=== PATIENT | female | born 1960 | race Caucasian/White ===

== ENCOUNTER 2020-09-06 06:29 | Outpatient (REF) | payer OTHER, SELFPAY ==
[2020-09-06 07:52] LABS: Cholesterol 258 mg/dL; HDL Cholesterol 67 mg/dL; LDL Cholesterol Calculated 176 mg/dl; Triglycerides 75 mg/dL
== END 2020-09-06 06:30 | disposition home or self-care (01) ==
LOC: HO.LAB 06:29
PROVIDERS: PCP Family Medicine; Visit Provider Family Medicine
DX: Z00.00 Encounter for general adult medical examination without abnormal findings (principal)
CPT/HCPCS: 80061

== ENCOUNTER 2023-01-12 07:21 | Outpatient (REF) | payer OTHER, SELFPAY ==
[2023-01-12 08:46] LABS: Appearance Urine Clear; Color Urine Yellow; Glucose Urine UA Negative (Negative); Leukocyte Esterase Urine Trace (Negative); Nitrite Urine Negative (Negative); PH 7.5 (5.0-9.0); UMIC TRIGGER UA YES; Urine Blood Negative (Negative); Urine Ketones Negative (Negative); Urine Protein Negative (Neg-Trace)
[2023-01-12 08:50] LABS: Bacteria Urine None Seen (None Seen); Hyaline Casts Urine 0-2 /LPF (0-2); RBC Urine 0-2 /HPF (0-2); Squamous Epithelial Cell Urine 0-2 /HPF (0-2); WBC Urine 0-5 /HPF (0-5)
[2023-01-12 08:52] LABS: Alanine Aminotransferase 15 U/L (0-31); Albumin Level 4.5 g/dL (3.5-5.0); Alkaline Phosphatase 55 U/L (39-117); Anion Gap 13 (12-20); Aspartate Amino Transferase 19 U/L (5-31); Bilirubin Total 0.7 mg/dL (0.0-1.0); Blood Urea Nitrogen 16 mg/dL (9-16); Calcium 10.4 mg/dL (8.4-10.2); Carbon Dioxide 27 mmol/L (22-29); Chloride 105 mmol/L (96-108); Cholesterol 231 mg/dL; Estimated Glomerular Filt Rate > 60; Glucose Fasting 94 mg/dL (60-99); HDL Cholesterol 62 mg/dL; LDL Cholesterol Calculated 158 mg/dl; Potassium 4.7 mmol/L (3.3-5.1); Sodium 140 mmol/L (135-145); Triglycerides 55 mg/dL
[2023-01-12 09:07] LABS: TSH reflex Free T4 0.04 uIU/mL (0.32-4.0)
[2023-01-12 09:18] LABS: Creatinine Urine 48.24 mg/dL; Microalbumin Urine < 5.0 mg/L
[2023-01-12 09:43] LABS: Free T4 (Free Thyroxine) 1.19 ng/dL (0.71-1.85)
== END 2023-01-12 07:22 | disposition home or self-care (01) ==
LOC: HO.LAB 07:21
PROVIDERS: PCP Family Medicine; Visit Provider Family Medicine
DX: Z00.00 Encounter for general adult medical examination without abnormal findings (principal); I10 Essential (primary) hypertension
CPT/HCPCS: 36415; 80053; 80061; 81001; 82043; 84439; 84443

== ENCOUNTER 2023-04-08 06:38 | Day surgery (SDC) | payer OTHER, SELFPAY ==
--- NOTE | 2023-04-05 12:02 | HO.ANESPROP2 ---
Documented by User: Laney Bautista NP 04/05/23 12:03 HPI - Anesthesia Eval Consult details Narrative: 63yo F for Colonoscopy PMFSH Active Problems Active Problems: All Active Problems (Updated 01/08/23 @ 09:13 by Antonio Mathews) Anxiety with depression (Acute) Hypothyroidism (Acute) Hyperlipidemia (Acute) Past Medical History Medical History (Updated 04/05/23 @ 12:03 by Laney Bautista NP) Anxiety with depression Bronchitis Hyperlipidemia Hypothyroidism Ulcerative colitis Family History Family History (Updated 01/08/23 @ 08:46 by Ruby Garcia CMA) Mother Diabetes Surgical History Surgical History (Updated 04/05/23 @ 12:03 by Laney Bautista NP) H/O partial thyroidectomy Social History Social History Housing: House Alcohol intake: former Patient Tobacco Use Status: Former Tobacco user e-Cigarette/Vaping Use: Never Used Are you DNR?: No Advance Directives: No Advance Directives Information Provided: Yes service: No Current occupational status: employed 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 no abdominal pain , no nausea PMFSH Past Medical History Medical History (Updated 04/05/23 @ 12:03 by Laney Bautista NP) Anxiety with depression Bronchitis Hyperlipidemia Hypothyroidism Ulcerative colitis Functional capacity: independent ambulation Family History Family History (Updated 01/08/23 @ 08:46 by Ruby Garcia CMA) Mother Diabetes Family history of problems with anesthesia: No Surgical History Surgical History (Updated 04/05/23 @ 12:03 by Laney Bautista NP) H/O partial thyroidectomy History of Problems with Anesthesia: No Social History Social History Housing: House Alcohol intake: former Patient Tobacco Use Status: Former Tobacco user e-Cigarette/Vaping Use: Never Used Are you DNR?: No Advance Directives: No Advance Directives Information Provided: Yes service: No Current occupational status: employed 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 Allergies Allergy/AdvReac Type Severity Reaction Status Date / Time Penicillins [PENICILLINS] Allergy Unknown RASH Verified 01/08/23 08:43 Exam Airway Mallampati Class: III Loose/Missing/Broken Teeth: Yes Assessment and Plan Final Anesthetic Review Family History of Problems with Anesthesia: No History of Problems with Anesthesia: No Documented by User: Prudence Jacobs MD 04/08/23 07:59 PMFSH Past Medical History Medical History (Updated 04/05/23 @ 12:03 by Laney Bautista NP) Anxiety with depression Bronchitis Hyperlipidemia Hypothyroidism Ulcerative colitis Family History Family History (Updated 01/08/23 @ 08:46 by Ruby Garcia CMA) Mother Diabetes Surgical History Surgical History (Updated 04/05/23 @ 12:03 by Laney Bautista NP) H/O partial thyroidectomy Social History Social History Housing: House Alcohol intake: former Patient Tobacco Use Status: Former Tobacco user e-Cigarette/Vaping Use: Never Used Are you DNR?: No Advance Directives: No Advance Directives Information Provided: Yes service: No Current occupational status: employed 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
[2023-04-08 06:55] VITALS: BP 154/79; PULSE 72; RESP 20; TEMP 36.6; O2SAT 97; BMI 31.6
[2023-04-08 08:35] VITALS: BP 120/54; PULSE 66; RESP 16; TEMP 36.1; O2SAT 97
--- NOTE | 2023-04-08 08:35 | P.BOP_ITS ---
Brief Operative Note Date of Service: 04/08/23 Pre-op diagnosis: Ulcerative colitis, Screening Post-op diagnosis: other (Same, Diverticulosis) Procedure: Colonoscopy to the cecum and TI with biopsies Surgeon: Manuel Solis Anesthesia: MAC Was an Industrial Commercial Groundskeeper used for this Procedure?: No Estimated blood loss (mL): 5.0 Pathology: other (A. Ascending colon B. Transverse colon C. Descending colon D. Sigmoid colon E. Rectum) Condition: stable Disposition: PACU
[2023-04-08 08:50] VITALS: BP 119/48; PULSE 66; RESP 16; TEMP 37.1; O2SAT 98
--- NOTE | 2023-04-08 09:07 | OP_ITS ---
DATE OF SERVICE: 04/08/2023 SURGEON: Manuel Solis MD INDICATIONS: The patient presents for evaluation of long-standing history of ulcerative colitis and colorectal cancer screening. Full consent obtained from her for this, including risks of bleeding and perforation. PREOPERATIVE DIAGNOSIS: POSTOPERATIVE DIAGNOSIS: PROCEDURE PERFORMED: Colonoscopy to cecum and terminal ileum with biopsies. ESTIMATED BLOOD LOSS: COMPLICATIONS: ANESTHESIA: Monitored anesthesia care. ASSISTANTS: SPECIMENS: PREOP DIAGNOSES: Ulcerative colitis and colorectal cancer screening. POSTOP DIAGNOSES: Ulcerative colitis and colorectal cancer screening, rule out dysplasia, mild sigmoid diverticulosis, internal hemorrhoids. DESCRIPTION OF PROCEDURE: The patient was placed in the left lateral decubitus position. The digital rectal exam revealed no abnormality. There was no perianal disease. The Olympus video pediatric colonoscope was entered into the rectum and advanced easily to the cecum. Once in the cecum, I did identify normal-appearing cecal pouch with appendiceal orifice and a normal-appearing ileocecal valve. The terminal ileum was cannulated and appeared normal. The scope was withdrawn back in the colon. The entire cecum and ileocecal valve appeared normal. The scope was slowly withdrawn assessing all mucosal surfaces carefully. Preparation was excellent. I did not visualize any sign of polyps, colitis, nor angiodysplasia. Random biopsies were obtained in the ascending colon, transverse colon, descending colon, sigmoid colon and rectum. In the rectum, scope was retroflexed visualizing internal hemorrhoids, but no other pathology. The rectal mucosa appeared normal. The scope was straightened and withdrawn from the patient. She tolerated the procedure well and was returned to the recovery area in stable condition. IMPRESSION: 1. History of ulcerative colitis, rule out dysplasia. 2. Mild sigmoid diverticulosis. 3. Internal hemorrhoids. PLAN: The results of the biopsies will be checked. Assuming there is no dysplasia, I would recommend a repeat colonoscopy in 3 years given the longevity of her underlying colitis and the fact that it had been a pancolitis in the past. She is currently not using any medication for the colitis and things have been stable. As such, she will see me in the interim on a p.r.n. basis. She was advised not to use any aspirin and NSAIDs for at least 1 week, but to try to avoid those long-term as well. MD MARY Mao/TEODORA / [phone]
== END 2023-04-08 09:20 | disposition home or self-care (01) ==
PROVIDERS: PCP Family Medicine; Visit Provider Internal Medicine
PROC: 0DJD8ZZ Inspection of Lower Intestinal Tract, Via Natural or Artificial Opening Endoscopic (ICD-10-PCS; CPT 45378; principal; 2023-04-08 07:30)
DX: Z12.11 Encounter for screening for malignant neoplasm of colon (principal); K57.30 Diverticulosis of large intestine without perforation or abscess without bleeding; K64.8 Other hemorrhoids; K51.00 Ulcerative (chronic) pancolitis without complications; E03.9 Hypothyroidism, unspecified; E78.5 Hyperlipidemia, unspecified; Z87.891 Personal history of nicotine dependence; Z79.899 Other long term (current) drug therapy
CPT/HCPCS: 45380; 88305

== ENCOUNTER 2023-04-11 13:25 | Outpatient (AMB) | payer OTHER, SELFPAY ==
[2023-04-11 13:32] VITALS: BP 128/74; PULSE 68; O2SAT 98; BMI 30.8
--- NOTE | 2023-04-11 13:32 | MHC.PC.OV ---
Vital Signs 04/11/23 13:32 Height 5 ft 1 in Weight 163 lb BMI 30.8 BP 128/74 Blood Pressure Location Lt brachial Position Sitting Pulse 68 Pulse Source Pulse Oximeter Pulse Oximetry (%) 98 Oxygen Delivery Method Room Air Intake Visit Reasons: f/u HLD Intake Note: Patient is here to follow up on her cholesterol. Allergies Penicillins [PENICILLINS] Allergy (Unknown, Verified 04/11/23 13:35) RASH Tobacco use date assessed: 04/11/23 Dental Screening Did you have a dental visit in the last 12 months?: Yes Did you have a dental problem in the last 6 months where you did not have access to dental care?: No Was dental information given to patient?: No HPI f/u HLD HPI Details 63 y/o female presents to f/u HLD. Pt had been unwilling to use a statin medication. Also following up on anxiety/depression. She is on escitalopram. She reports she feels like she is steady on escitalopram. Lipid panel drawn 01/12/23. Triglycerides 55. TC 231. LDL 158. HDL 62. TSH low at 0.04. She is on levothyroxine 125 mcg daily. Pt notes she has not been watching her diet much. 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[employer] Cognitive needs: No Hearing needs: No Vision needs: No Review of Systems Const Denies chills, Denies fatigue, Denies fever(s), Denies headache(s) and Denies weakness ENT Denies dizziness and Denies headache(s) Card Denies chest pain, Denies lightheadedness, Denies dyspnea and Denies other (Palpitations) Resp Denies cough, Denies dyspnea, Denies wheezing and Denies other ( shortness of breath) Musc Denies numbness and Denies tingling Neuro Denies dizziness, Denies headache(s), Denies numbness, Denies tingling, Denies paresthesias and Denies weakness Psych Denies anxiety and Denies depression Endo Denies fatigue Aller/Immun Denies wheezing Physical exam (Primary Care) Vital Signs: Last Vital Signs Pulse 68 04/11/23 13:32 BP 128/74 04/11/23 13:32 Pulse Ox 98 04/11/23 13:32 Oxygen Delivery Method Room Air 04/11/23 13:32 BMI result Body Mass Index 30.8 Tobacco/Smoking Status: Tobacco use Status Tobacco use date assessed 04/11/23 04/11/23 13:40 Patient Tobacco Use Status Former Tobacco user 04/11/23 13:34 e-Cigarette/Vaping Use Never Used 04/11/23 13:34 Const General: no acute distress and well developed Nutritional Appearance: well nourished Orientation/consciousness: patient oriented x3 HENMT Head: Yes normocephalic and Yes atraumatic Eyes General: appearance normal, both eyes and all related structures Pupils: Equal, round and reactive pupils present EOM: EOMs intact bilaterally Resp Effort & Inspection: normal respiratory effort Auscultation: clear to auscultation bilaterally Cardio Rate: regular rate Rhythm: regular rhythm Heart sounds: S1 normal heart sound present, S2 normal heart sound present, no gallops, no murmurs and no rubs Neuro General: patient oriented x3 and gait normal Cranial nerves: Yes Equal, round and reactive pupils present Psych Affect: normal affect Assessment and Plan Assessment & Plan (1) Hyperlipidemia: Code(s): E78.5 - Hyperlipidemia, unspecified Plan: Lipids are improving and HDL is good Encouraged a continued effort at a diet lower in saturated fats and cholesterol, exercise and weight loss She declines statins but has a friend/neighbor who is using red yeast rice so she is looking into that (2) Hypothyroidism: Code(s): E03.9 - Hypothyroidism, unspecified Plan: TSH was suppressed at her last check She sees Dr. Stephens in, endocrinology and she can discuss this with him (3) Anxiety with depression: Code(s): F41.8 - Other specified anxiety disorders Plan: Stable on escitalopram 20 mg daily Continue current regimen Orders: Orders Comprehensive [place]. Panel Fast Today Z00.00 - Encounter for general adult medical examination without abnormal findings Lipid Panel Today Z00.00 - Encounter for general adult medical examination without abnormal findings TSH reflex Free T4 Today Z00.00 - Encounter for general adult medical examination without abnormal findings Microalbumin, Random (w Creat) Today I10 - Essential (primary) hypertension Complete Blood Count Auto Diff Today Z00.00 - Encounter for general adult medical examination without abnormal findings UA and rflx microscopic Today Z00.00 - Encounter for general adult medical examination without abnormal findings Medications: Changed From escitalopram oxalate 20 mg PO DAILY 30 caps 3RF To escitalopram oxalate 20 mg PO DAILY 90 days 90 caps 3RF Coding Level of Care Code Est Pt Level 3 (63193) Diagnoses Hyperlipidemia E78.5 Hypothyroidism E03.9 Anxiety with depression F41.8
== END 2023-04-11 14:17 | disposition home or self-care (01) ==
PROVIDERS: PCP Family Medicine; Visit Provider Family Medicine
DX: E78.5 Hyperlipidemia, unspecified (principal); E03.9 Hypothyroidism, unspecified; F41.8 Other specified anxiety disorders
CPT/HCPCS: 99213

== ENCOUNTER 2023-07-29 05:58 | Outpatient (REF) | payer OTHER, SELFPAY ==
[2023-07-29 06:06] LABS: MANUAL DIFF FLAG NO
[2023-07-29 07:44] LABS: Basophils Absolute Auto 0.1 X10*3/uL (0.0-0.2); Basophils Percent Auto 1.1 % (0-2); Eosinophils Absolute Auto 0.3 X10*3/uL (0.0-0.4); Eosinophils Percent Auto 3.7 % (0-4); Hematocrit 39.8 % (37.0-47.0); Hemoglobin 13.2 g/dl (12.0-16.0); Imm Gran Abs Auto 0.01 X10*3/uL (0.00-0.03); Imm Gran Pct Auto 0.1 % (0.0-0.4); Lymphocytes Absolute Auto 2.9 X10*3/uL (1.2-4.9); Lymphocytes Percent Auto 39.2 % (20-40); Mean Corpuscular HGB Conc 33.2 g/dl (31.0-35.0); Mean Corpuscular Hemoglobin 29.8 pg (27.0-33.0); Mean Corpuscular Volume 89.8 fL (80.0-98.0); Mean Platelet Volume 11.7 fL (9.4-12.3); Monocytes Absolute Auto 0.7 X10*3/uL (0.1-1.2); Monocytes Percent Auto 9.3 % (2-11); Neutrophils Absolute Auto 3.4 x10*3/uL (2.0-8.3); Neutrophils Percent Auto 46.6 % (45-73); Platelet Count 288 X10*3/uL (160-400); Red Blood Count 4.43 X10*6/uL (4.20-5.50); White Blood Count 7.3 X10*3/uL (4.8-10.8)
[2023-07-29 07:53] LABS: Appearance Urine Clear; Color Urine Yellow; Glucose Urine UA Negative (Negative); Leukocyte Esterase Urine Trace (Negative); Nitrite Urine Negative (Negative); PH 5.5 (5.0-9.0); UMIC TRIGGER UA YES; Urine Blood Negative (Negative); Urine Ketones Negative (Negative); Urine Protein Negative (Neg-Trace)
[2023-07-29 07:56] LABS: Bacteria Urine None Seen (None Seen); Hyaline Casts Urine 0-2 /LPF (0-2); RBC Urine 0-2 /HPF (0-2); Squamous Epithelial Cell Urine 0-2 /HPF (0-2); WBC Urine 0-5 /HPF (0-5)
[2023-07-29 08:30] LABS: Alanine Aminotransferase 15 U/L (0-31); Albumin Level 4.4 g/dL (3.5-5.0); Alkaline Phosphatase 57 U/L (39-117); Anion Gap 12 (12-20); Aspartate Amino Transferase 21 U/L (5-31); Bilirubin Total 0.6 mg/dL (0.0-1.0); Blood Urea Nitrogen 17 mg/dL (9-16); Calcium 10.3 mg/dL (8.4-10.2); Carbon Dioxide 28 mmol/L (22-29); Chloride 105 mmol/L (96-108); Cholesterol 250 mg/dL (<200); Estimated Glomerular Filt Rate > 60; Glucose Fasting 86 mg/dL (60-99); HDL Cholesterol 69 mg/dL (>40); LDL Cholesterol Calculated 168 mg/dL (<100); Potassium 4.5 mmol/L (3.3-5.1); Sodium 140 mmol/L (135-145); Total Protein 7.6 g/dL (6.5-8.0); Triglycerides 66 mg/dL (<150)
[2023-07-29 08:31] LABS: Creatinine Urine 174.72 mg/dL; Microalbum/Creatinine Ratio Ur 5.1 ug/mg cr (<30)
[2023-07-29 08:48] LABS: TSH reflex Free T4 0.03 uIU/mL (0.32-4.0)
[2023-07-29 09:25] LABS: Free T4 (Free Thyroxine) 1.24 ng/dL (0.71-1.85)
== END 2023-07-29 05:59 | disposition home or self-care (01) ==
LOC: HO.LAB 05:58
PROVIDERS: PCP Family Medicine; Visit Provider Family Medicine
DX: Z00.00 Encounter for general adult medical examination without abnormal findings (principal); I10 Essential (primary) hypertension
CPT/HCPCS: 36415; 80053; 80061; 81001; 82043; 82570; 84439; 84443; 85025

== ENCOUNTER 2023-08-07 13:43 | Outpatient (AMB) | payer OTHER, SELFPAY ==
[2023-08-07 13:51] VITALS: BP 120/72; PULSE 68; O2SAT 100; BMI 31.0
--- NOTE | 2023-08-07 13:51 | MHC.PC.OV ---
Vital Signs 08/07/23 13:51 Height 5 ft 1 in Weight 164 lb BMI 31.0 BP 120/72 Blood Pressure Location Lt brachial Position Sitting Pulse 68 Pulse Source Pulse Oximeter Pulse Oximetry (%) 100 Oxygen Delivery Method Room Air Intake Visit Reasons: CPE with f/u labs and health maintenance Intake Note: Patient is here for a physical and and follow up on labs, and health maintenance. She complains of headaches today. Allergies Penicillins [PENICILLINS] Allergy (Unknown, Verified 08/07/23 13:52) RASH Tobacco use date assessed: 08/07/23 HPI CPE with f/u labs and health maintenance HPI Details 63 y/o female presents for a CPE with f/u labs and health maintenance. Labs were drawn 07/29/23. Reviewed labs with pt. Triglycerides 66. TC 250. LDL 168. HDL 69. TSH suppressed 0.03. She is on levothyroxine 125 mcg daily. Calcium levels mildly elevated at 10.3. She has an electrolysist at [facility]. She has complaints of a headache today. She notes her diet could be better. She reports last mammogram was in April and was normal. She reports she had her colonoscopy this year April 08 with Manuel Solis. She follows up with them every 3 years due to ulcerative colitis. 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 Cognitive needs: No Hearing needs: No Vision needs: No Review of Systems Const Denies chills, Denies fatigue, Denies fever(s), Reports headache(s) and Denies weakness Eyes Denies change in vision ENT Denies dizziness, Reports headache(s), Denies hearing loss, Denies nasal congestion, Denies sinus pain, Denies sinus pressure and Denies sore throat Card Denies chest pain, Denies lightheadedness, Denies dyspnea and Denies other (palpitations) Resp Denies cough, Denies dyspnea and Denies wheezing GI Denies abdominal pain, Denies melena, Denies hematochezia, Denies change in bowel habits, Denies dyspepsia and Denies nausea Denies hematuria and Denies dysuria Musc Denies abnormal gait, Denies myalgias, Denies arthralgias, Denies numbness and Denies tingling Skin/Breast Denies rash, Denies unusual bruising and Denies wounds Neuro Denies abnormal gait, Denies dizziness, Reports headache(s), Denies memory loss, Denies numbness, Denies Sensory deficit (Neuro), Denies tingling and Denies weakness Psych Denies anxiety, Denies depression and Denies memory loss Endo Denies cold intolerance, Denies fatigue, Denies heat intolerance, Denies polydipsia and Denies polyuria Tushar/Lymph Denies easy bleeding and Denies easy bruising Aller/Immun Denies wheezing Physical exam (Primary Care) Vital Signs: Last Vital Signs Pulse 68 08/07/23 13:51 BP 120/72 08/07/23 13:51 Pulse Ox 100 08/07/23 13:51 Oxygen Delivery Method Room Air 08/07/23 13:51 BMI result Body Mass Index 31.0 Tobacco/Smoking Status: Tobacco use Status Tobacco use date assessed 08/07/23 08/07/23 13:58 Patient Tobacco Use Status Former Tobacco user 08/07/23 13:58 e-Cigarette/Vaping Use Never Used 08/07/23 13:58 Const General: no acute distress, well developed, alert and awake Nutritional Appearance: well nourished Orientation/consciousness: patient oriented x3 HENMT Head: Yes normocephalic and Yes atraumatic Ears: hearing grossly normal bilaterally and TM's normal bilaterally General nose exam: Normal external nose present and Normal nares present Mouth: Normal oral and palatal mucosa present and moist mucous membranes Teeth and gingiva: dentition normal Throat: Yes posterior oropharynx normal Eyes General: appearance normal, both eyes and all related structures Pupils: Equal, round and reactive pupils present and Pupil accommodation reflex normal EOM: EOMs intact bilaterally Neck Neck: Yes normal visual inspection, Yes no lymphadenopathy and Yes trachea midline Thyroid: Thyroid normal Carotids: no bruits Lymphatic: no lymphadenopathy noted Chest Chest palpation & inspection: normal inspection of the chest Resp Effort & Inspection: normal respiratory effort Auscultation: clear to auscultation bilaterally Cardio Rate: regular rate Rhythm: regular rhythm Heart sounds: S1 normal heart sound present, S2 normal heart sound present, no gallops, Murmur heart sound present (Early systolic murmur 3/6 over aortic region ) and no rubs Bruits: no abdominal aortic bruits and no carotid bruits GI Palpation (GI): No Abdominal aortic bruit present, Soft to palpation, nontender, No hepatosplenomegaly present and No Rebound tenderness present Auscultation: normal bowel sounds General: Yes no CVA tenderness Back/Spine/Pelvis Back: no CVA tenderness Cervical Spine: cervical ROM normal and No Cervical spine tenderness Thoracic/Lumbar Spine: thoraco-lumbar ROM normal, No pain with thoraco-lumbar ROM, No thoracic spinal tenderness and No lumbar spinal tenderness Skin Lesions: no lesions Rashes: no rashes Trauma: no lacerations or abrasions Wounds: no wounds Nails: normal Neuro General: patient oriented x3 Cranial nerves: Yes Equal, round and reactive pupils present Cognition (Neuro): normal cognition Gait exam (Neuro): Normal gait present Motor exam (neuro): 5/5 motor strength present throughout Sensory Exam: No Sensory deficit (Neuro) Deep tendon reflexes (DTR's): Right patellar reflex intensity grade: 2+ and Left patellar reflex intensity grade: 2+ Extrem General: Yes normal to inspection and No edema Psych Appearance: grossly normal Affect: normal affect Attitude: cooperative Thought process: Normal thought process present Assessment and Plan Assessment & Plan (1) Adult general medical exam: Code(s): Z00.00 - Encounter for general adult medical examination without abnormal findings Plan: 63-year-old?woman?presents?for?complete?physical?exam Encouraged?healthy?diet?with?active?lifestyle?and?plenty?of?exercise (2) Hyperlipidemia: Code(s): E78.5 - Hyperlipidemia, unspecified Plan: Lipids?are?still?significantly?elevated. Patient?agrees?to?start?atorvastatin. Risks/benefits?discussed?with?patient We?can?follow-up?on?her?lipids?in?about?3?months (3) Hypothyroidism: Code(s): E03.9 - Hypothyroidism, unspecified Plan: TSH?still?mildly?suppressed.??Patient?says?her?electrolysist?is?aware?and?does?not?need?to?make?any?changes Follow-up?with?endocrinology?as?recommended (4) Hypercalcemia: Code(s): E83.52 - Hypercalcemia Plan: Persistent?hypercalcemia,?mild Will?recheck?calcium?level?and?also?parathyroid?hormones. Recommended?she?discuss?with?her?electrolysist (5) Heart murmur: Code(s): R01.1 - Cardiac murmur, unspecified Plan: Early?systolic?murmur?3/6?over?aortic?region. Check?echo (6) Screening for cervical cancer: Code(s): Z12.4 - Encounter for screening for malignant neoplasm of cervix Plan: Followed?by??Cristopher?and?up-to-date (7) Breast cancer screening by mammogram: Code(s): Z12.31 - Encounter for screening mammogram for malignant neoplasm of breast Plan: Managed?by?her?counter top maker,??Cristopher Last?mammogram?this?year?was?within?normal?limits,?per?patient Follow-up?with?counter top maker?as?recommended (8) Screening for colon cancer: Code(s): Z12.11 - Encounter for screening for malignant neoplasm of colon Plan: History?of?ulcerative?colitis?and?followed?by? Up-to-date?with?colonoscopy. Colonoscopies?Q?3?years Orders: Orders PTH Intact Intraoperative Today Comprehensive [place]. Panel Fast 10 Weeks E78.5 - Hyperlipidemia, unspecified, Z00.00 - Encounter for general adult medical examination without abnormal findings Comprehensive [place]. Panel Today E83.52 - Hypercalcemia Lipid Panel 10 Weeks E78.5 - Hyperlipidemia, unspecified, Z00.00 - Encounter for general adult medical examination without abnormal findings CA echo transthoracic complete Today R01.1 - Cardiac murmur, unspecified Medications: New atorvastatin 40 mg PO BEDTIME 90 tabs 2RF 90 days Coding Level of Care Code Est Pt Level 4 (77683) Est Pt Prev Care 40-64y(13657) Diagnoses Adult general medical exam Z00.00 Hyperlipidemia E78.5 Hypothyroidism E03.9 Hypercalcemia E83.52 Heart murmur R01.1 Screening for cervical cancer Z12.4 Breast cancer screening by mammogram Z12.31 Screening for colon cancer Z12.11
== END 2023-08-07 14:54 | disposition home or self-care (01) ==
PROVIDERS: PCP Family Medicine; Visit Provider Family Medicine
DX: Z00.00 Encounter for general adult medical examination without abnormal findings (principal); E78.5 Hyperlipidemia, unspecified; E03.9 Hypothyroidism, unspecified; E83.52 Hypercalcemia; R01.1 Cardiac murmur, unspecified
CPT/HCPCS: 99214; 99396

== ENCOUNTER → 2023-09-25 13:56 | Outpatient (REF) | payer OTHER, SELFPAY ==
--- NOTE | 2023-09-25 14:00 | CA_ITS ---
Transthoracic Echocardiogram Patient (Last, First, Middle): Alicia Nolan, Gender: Female Date of : 1960 Age: 63 Procedure Date: 09/25/2023 Procedure Type: Transthoracic Echocardiogram Location: OP Height: 154.94 cm Weight: 74.39 kg BSA: 1.74 m2 Heart Rate: 69 bpm BP: 120 / 72 mmHg Canal Superintendent: SB Referring MD: Chino Villatoro MD Symptoms: R01.1 - Cardiac murmur, unspecified Study Quality: Fair but adequate ECG Rhythm: Sinus Conclusions: - The left ventricular systolic function is normal. The calculated ejection fraction is 64% by biplane method. - No obvious valvular pathology seen on this study. - There is mild dilatation of the ascending aorta measuring 4.00 cm. Findings Left Ventricle Normal left ventricular cavity size. There is normal left ventricular wall thickness. The left ventricular systolic function is normal. The calculated ejection fraction is 64% by biplane method. There is no evidence of regional wall motion abnormalities. Evidence suggests grade I (mild) diastolic dysfunction. LV peak GLS -18.5%. Right Ventricle Normal right ventricular cavity size and systolic function. Atria Both atria are normal in size. Aortic Valve There is a normal trileaflet aortic valve. There is no aortic valve stenosis. There is trace (trivial) aortic valve regurgitation. Mitral Valve The mitral valve appears normal. There is no mitral valve regurgitation. There is no mitral valve stenosis. Pulmonic Valve The pulmonic valve is likely normal. Tricuspid Valve Normal tricuspid valve structure. There is trace tricuspid valve regurgitation. There is no evidence of pulmonary hypertension. Great Vessels The aortic arch is normal in size. There is mild dilatation of the ascending aorta measuring 4.00 cm. Venous The inferior vena cava is normal in size and collapses greater than 50% with inspiration. Pericardium/Pleural There is no evidence of pericardial effusion. Prior Study Comparison No prior study available for comparison. Recommendations, Care & Conclusions No obvious valvular pathology seen on this study. Measurements 2D Linear Measurements IVSd: 1.03 0.6-0.9/0.6-1.0 cm LVIDd: 3.87 3.9-5.3/4.2-5.9 cm LVIDd Index: 2.22 2.4-3.2/2.2-3.1 cm/m2 LVIDs: 2.07 2.0-3.6 cm LVPWd: 0.77 0.7-1.1 cm LA Diam: 3.30 2.7-3.8/3.0-4.0 cm LAIDs Index: 1.90 1.5-2.3 cm/m2 LV Mass: 129.70 67-162/88-224 g LV Mass Index: 74.54 43-95/49-115 g/m2 LVOT Diam: 2.00 3.0+(-)1.3 cm 2D Systolic Function EF 4C: 65.10 >55% EF 2C: 62.70 >55% EF BiP: 63.70 >55% Mitral Valve MV Pk E: 0.78 MV PK A: 0.86 MV Decel Time: 197.00 E/A: 0.90 E'Lateral: 5.87 E'Medial: 5.44 E/E' Med: 14.40 E/E' Lat: 13.40 PHT: 58.00 MVA PHT: 3.79 Decel Warrick: 3.98 Aortic Valve AoV Pk Hung: 1.17 AoV Pk Grad: 5.00 SYLVAIN: 2.70 AI Pk Hung: 3.63 AI Warrick: 1.53 LVOT LVOT Pk Hung: 0.93 LVOT Mn Hung: 0.77 LVOT VTI: 0.24 LVOT Pk Grad: 3.00 LVOT Mn Grad: 3.00 LVOT Diam: 2.00 LVOT Area: 3.14 Diastolic Function MV Pk E: 0.78 MV Pk A: 0.86 E/A: 0.90 E'Medial: 5.44 E/E' Med: 14.40 E' Laterial: 5.87 E/E' Lat: 13.40 Right Ventricle TVS' Hung: 11.00 Tricuspid Valve RA Press: 3.00 Great Vessels Aorta Sinus of Valsalva: 3.40 2.0-3.5 cm Ao Asc: 4.00 2.1-3.4 cm Ao Arch: 3.10 Pulmonary Valve PV Pk Hung: 0.79 Peak PV Grad: 3.00 Updated in Other Vendor System with Status of Final Shanu Purvis MD electronically signed on 09/26/2023 2:40:14 PM with status of Final
== END ==
LOC: HO.CARD 13:56
PROVIDERS: PCP Family Medicine; Visit Provider Family Medicine
DX: R01.1 Cardiac murmur, unspecified (principal)
CPT/HCPCS: 93306; 93356

== ENCOUNTER → 2023-09-25 14:00 | Outpatient (BNV) | payer OTHER, SELFPAY | PROVIDERS: PCP Family Medicine; Visit Provider Internal Medicine | DX: R01.1 Cardiac murmur, unspecified (principal); I51.9 Heart disease, unspecified | CPT/HCPCS: 93306 ==

== ENCOUNTER 2023-09-30 06:06 | Outpatient (REF) | payer OTHER, SELFPAY ==
[2023-09-30 07:27] LABS: Parathyroid Hormone Intact 52.4 pg/mL (8.7-77.1)
[2023-09-30 07:33] LABS: Alanine Aminotransferase 14 U/L (0-31); Albumin Level 4.3 g/dL (3.5-5.0); Alkaline Phosphatase 52 U/L (39-117); Anion Gap 11 (12-20); Aspartate Amino Transferase 19 U/L (5-31); Bilirubin Total 0.6 mg/dL (0.0-1.0); Blood Urea Nitrogen 15 mg/dL (9-16); Calcium 9.9 mg/dL (8.4-10.2); Carbon Dioxide 28 mmol/L (22-29); Chloride 107 mmol/L (96-108); Cholesterol 222 mg/dL (<200); Estimated Glomerular Filt Rate > 60; Glucose Random 96 mg/dL (60-115); HDL Cholesterol 64 mg/dL (>40); LDL Cholesterol Calculated 144 mg/dL (<100); Potassium 4.4 mmol/L (3.3-5.1); Sodium 142 mmol/L (135-145); Total Protein 7.3 g/dL (6.5-8.0); Triglycerides 74 mg/dL (<150)
[2023-09-30 07:45] LABS: Appearance Urine Clear; Color Urine Yellow; Glucose Urine UA Negative (Negative); Leukocyte Esterase Urine Negative (Negative); Nitrite Urine Negative (Negative); PH 5.5 (5.0-9.0); Urine Blood Negative (Negative); Urine Ketones Negative (Negative); Urine Protein Negative (Neg-Trace)
== END 2023-09-30 06:07 | disposition home or self-care (01) ==
LOC: HO.LAB 06:06
PROVIDERS: PCP Family Medicine; Visit Provider Family Medicine
DX: Z00.00 Encounter for general adult medical examination without abnormal findings (principal); E83.52 Hypercalcemia; E78.5 Hyperlipidemia, unspecified
CPT/HCPCS: 36415; 80053; 80061; 81003; 83970

== ENCOUNTER 2023-10-25 16:50 | Outpatient (AMB) | payer OTHER, SELFPAY ==
--- NOTE | 2023-10-25 16:47 | A.OFFPC_ITS ---
Intake Visit Reasons: f/u labs Intake Note: Patient is following up on labs today. Allergies Penicillins [PENICILLINS] Allergy (Unknown, Verified 08/07/23 13:52) RASH Tobacco use date assessed: 10/25/23 HPI f/u labs HPI Details 63 y/o female presents today to f/u labs via telemedicine. Labs were drawn 09/30/23. Reviewed labs with pt. Triglycerides 74. TC 222. LDL 144. HDL 64. She reports she has not been taking artovastatin but she did take the red yeast rice. 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 [employer] Cognitive needs: No Hearing needs: No Vision needs: No Review of Systems Const Denies chills, Denies fatigue, Denies fever(s), Denies headache(s) and Denies weakness ENT Denies dizziness and Denies headache(s) Card Denies dyspnea Resp Denies cough, Denies dyspnea, Denies wheezing and Denies other (shortness of breath) Musc Denies numbness and Denies tingling Neuro Denies dizziness, Denies headache(s), Denies numbness, Denies tingling and Denies weakness Psych Denies anxiety and Denies depression Endo Denies fatigue Aller/Immun Denies wheezing Physical exam (Primary Care) Tobacco/Smoking Status: Tobacco use Status Tobacco use date assessed 10/25/23 10/25/23 16:49 Patient Tobacco Use Status Former Tobacco user 10/25/23 16:49 e-Cigarette/Vaping Use Never Used 10/25/23 16:49 Telehealth Telehealth Location of provider rendering services: practice address Location of patient: address on file Patient Identification confirmed using: Name, : Yes Telehealth method: voice only Patient verbally consented to treatment: Yes Patient verbally consented to billing insurance company: Yes Patient informed of any privacy concerns related to visit: Yes Minutes spent on Phone/Video with Pt.: 8 Assessment and Plan Assessment & Plan (1) Hyperlipidemia: Code(s): E78.5 - Hyperlipidemia, unspecified Plan: Significantly?improved?LDL?cholester ol?as?patient?is?working?on?lifestyle?changes?and?taking?red?yeast?rice.??She?dorman s?not?taken?atorvastatin. She?can?continue?red?yeast?rice?and?I?encouraged?her?to?continue?working?on?life style?changes Will?recheck?in?about?3?months (2) Heart murmur: Code(s): R01.1 - Cardiac murmur, unspecified Plan: Echocardiogram?shows?no?valvular?pathology Benign?murmur (3) Ascending aorta dilatation: Code(s): I77.810 - Thoracic aortic ectasia Plan: Incidental?mild?aortic?dilatation Blood?pressure?is?okay Will?recheck?echocardiogram?in?1?year Orders: Orders Comprehensive [place]. Panel Fast Today E78.5 - Hyperlipidemia, unspecified, Z00.00 - Encounter for general adult medical examination without abnormal findings CA echo transthoracic complete 10/12/24 I77.810 - Thoracic aortic ectasia Lipid Panel Today E78.5 - Hyperlipidemia, unspecified, Z00.00 - Encounter for general adult medical examination without abnormal findings Coding Level of Care Code Tele Est Pt Level 2 (81894) Diagnoses Hyperlipidemia E78.5 Heart murmur R01.1 Ascending aorta dilatation I77.810
== END 2023-10-25 17:00 ==
LOC: HO.HMGFM 16:50
PROVIDERS: PCP Family Medicine; Visit Provider Family Medicine
DX: E78.5 Hyperlipidemia, unspecified (principal); R01.1 Cardiac murmur, unspecified; I77.810 Thoracic aortic ectasia
CPT/HCPCS: 99441

== ENCOUNTER 2023-12-07 07:12 | Outpatient (REF) | payer OTHER, SELFPAY ==
[2023-12-07 08:39] LABS: Alanine Aminotransferase 14 U/L (0-31); Albumin Level 4.3 g/dL (3.5-5.0); Alkaline Phosphatase 60 U/L (39-117); Anion Gap 14 (12-20); Aspartate Amino Transferase 18 U/L (5-31); Bilirubin Total 0.5 mg/dL (0.0-1.0); Blood Urea Nitrogen 17 mg/dL (9-16); Carbon Dioxide 26 mmol/L (22-29); Chloride 106 mmol/L (96-108); Cholesterol 220 mg/dL (<200); Estimated Glomerular Filt Rate > 60; Glucose Fasting 99 mg/dL (60-99); HDL Cholesterol 64 mg/dL (>40); LDL Cholesterol Calculated 141 mg/dL (<100); Potassium 4.5 mmol/L (3.3-5.1); Sodium 141 mmol/L (135-145); Total Protein 7.4 g/dL (6.5-8.0); Triglycerides 77 mg/dL (<150)
== END 2023-12-07 07:13 | disposition home or self-care (01) ==
LOC: HO.LAB 07:12
PROVIDERS: PCP Family Medicine; Visit Provider Family Medicine
DX: Z00.00 Encounter for general adult medical examination without abnormal findings (principal); E78.5 Hyperlipidemia, unspecified
CPT/HCPCS: 36415; 80053; 80061; 83970

== ENCOUNTER 2024-10-12 13:35 | Outpatient (REF) | payer OTHER, SELFPAY ==
--- OUTSIDE RECORDS SUMMARY | 2024-10-12 14:58 | XMS_ITS | Clinical Summary ---
Author Organization [facility] Address [address] [place] [address] Care Team Providers Care Occupational Medicine Officer Name Role Phone Chino Villatoro MD Primary Care Provider [phone] Allergies Active Allergy Reactions Criticality Noted Date Comments Penicillins 11/27/2016 Medications Medication Sig Dispensed Refills Start Date End Date Status levothyroxine (SYNTHROID) tablet 125 mcg Take 125 mcg by mouth daily. as directed 0 07/13/2021 Active escitalopram (LEXAPRO) 20 MG tablet Take 20 mg by mouth daily. 0 07/25/2021 Active Mesalamine (LIALDA PO) Take 2.4 g by mouth. 0 03/20/2018 Active LORAZEPAM PO 0 03/20/2018 Active Family History Medical History Relation Name Comments Cancer Father Diabetes Mother Hypertension Mother Relation Name Status Comments Father Mother Social History Tobacco Use Types Packs/Day Years Used Date Smoking Tobacco: Never Assessed Sex and Gender Information Value Date Recorded Sex Assigned at Not on file Gender Identity Not on file Sexual Orientation Not on file Job Start Date Occupation Industry Not on file Not on file Not on file Last Filed Vital Signs Vital Sign Reading Time Taken Comments Blood Pressure - - Pulse - - Temperature - - Respiratory Rate - - Oxygen Saturation - - Inhaled Oxygen Concentration - - Weight 77.1 kg (170 lb) 04/11/2022 2:41 PM EDT Height 152.4 cm (5') 04/11/2022 2:41 PM EDT Body Mass Index 33.2 04/11/2022 2:41 PM EDT Plan of Treatment Health Maintenance Due Date Last Done Comments Hepatitis C Screening 1960 COVID-19 Vaccine (#1) 1960 Depression Screening 1972 BMI Counseling 01/25/1978 Preventative Health Evaluation 01/25/1978 DTap / Tdap / Td (1 - Tdap) 01/25/1979 Cervical Cancer Screening (P ap Smear) 01/25/1981 Colon Cancer Screening (Colonoscopy) 01/25/2005 Breast Cancer Screening (Mammogram) 01/25/2010 Shingrix-Zoster Vaccine (1 of 2) 01/25/2010 Influenza Vaccine (#1) 2024 Pneumococcal Vaccine (1 of 1 - PCV) 01/25/2025 RSV Adult > 60+ Yrs or Pregn ant (1 - 1-dose 75+ series) 01/25/2035 Hepatitis B Vaccines Aged Out No long er eligible based on patient's age to complete this topic Pneumococcal Vaccine Aged Out No long er eligible based on patient's age to complete this topic RSV Ped < 20 months Aged Out No longe r eligible based on patient's age to complete this topic Care Teams Occupational Medicine Officer Relationship Specialty Start Date End Date Chino Villatoro MD [address] [place] [address] PCP - General Family Medicine 07/28/21
[2024-10-12 15:10] LABS: Parathyroid Hormone Intact 65.5 pg/mL (8.7-77.1)
[2024-10-12 15:13] LABS: Anion Gap 12 (12-20)
[2024-10-12 15:18] LABS: Alanine Aminotransferase 13 U/L (0-31); Albumin Level 4.5 g/dL (3.5-5.0); Aspartate Amino Transferase 26 U/L (5-31); Bilirubin Total 0.6 mg/dL (0.0-1.0); Blood Urea Nitrogen 16 mg/dL (9-16); Calcium 10.3 mg/dL (8.4-10.2); Carbon Dioxide 24 mmol/L (22-29); Chloride 108 mmol/L (96-108); Estimated Glomerular Filt Rate > 60; Glucose Fasting 92 mg/dL (60-99); Potassium 4.4 mmol/L (3.3-5.1); Sodium 140 mmol/L (135-145); Total Protein 7.9 g/dL (6.5-8.0)
[2024-10-12 16:07] LABS: Alkaline Phosphatase 51 U/L (39-117)
== END 2024-10-12 13:36 | disposition home or self-care (01) ==
LOC: HO.LAB 13:35
PROVIDERS: PCP Family Medicine; Visit Provider Family Medicine
DX: Z00.00 Encounter for general adult medical examination without abnormal findings (principal); E78.5 Hyperlipidemia, unspecified
CPT/HCPCS: 36415; 80053; 83970

== ENCOUNTER → 2024-10-12 13:57 | Outpatient (BNV) | payer OTHER, SELFPAY | PROVIDERS: PCP Family Medicine; Visit Provider Internal Medicine | DX: I34.0 Nonrheumatic mitral (valve) insufficiency (principal); I77.810 Thoracic aortic ectasia | CPT/HCPCS: 93306 ==

== ENCOUNTER 2024-11-13 10:34 | Outpatient (AMB) | payer OTHER, SELFPAY ==
--- NOTE | 2024-11-13 10:55 | A.OFFPC_ITS ---
Vital Signs 11/13/24 11:00 Height 5 ft Weight 167 lb 6 oz BMI 32.7 BP 160/90 H Blood Pressure Location Rt brachial Position Sitting Respiration 16 Pulse 77 Pulse Source Pulse Oximeter Temp 97.9 F Temp Source Oral Pulse Oximetry (%) 99 Oxygen Delivery Method Room Air Intake Visit Reasons: F/U meds review Intake Note: Patient is scheduled for follow up meds and lab review Room Service Attendant Required: No Allergies Penicillins [PENICILLINS] Allergy (Unknown, Verified 11/13/24 10:59) RASH Medication List - Last Reconciled 11/13/24 by Chino Villatoro MD atorvastatin 40 mg PO BEDTIME 90 days escitalopram oxalate 20 mg PO DAILY 90 days levothyroxine 125 mcg PO DAILY 90 days Tobacco use date assessed: 10/25/23 HPI F/U meds review HPI Details 64 y/o female presents today for a med r eview. Blood pressure today elevated at 160/90, 77p. She is not on anything for her blood pressures. 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 1. Little interest or pleasure in doing things: not at all 2. Feeling down, depressed, or hopeless: not at all 3. Trouble falling or staying asleep, or sleeping too much: not at all 4. Feeling tired or having little energy: not at all 5. Poor appetite or overeating: not at all 6. Feeling bad about yourself - or that you are a failure or have let yourself or your family down: not at all 7. Trouble concentrating on things, such as reading the newspaper or watching t elevision: not at all 8. Moving or speaking so slowly that other people could have noticed. Or the opposite - being so fidgety or restless that you have been moving around a lot more than usual: not at all 9. Thoughts that you would be better off or of hurting yourself in some way: not at all Total score: 0 Source: Developed by Drs. Manuel Castorena, Stephanie Joseph, Marco A Camejo and colleagues, with an educational emma from [email or web address]. Thrive Questionnaire Date Thrive assessed: 11/13/24 I am a: Patient What is your living situation today?: I have a steady place to live Within the past 12 months, did the food you bought not last and you didn't have the money to get more?: Never true Within the past 12 months, did you worry whether your food would run out before you got money to buy more?: Never true Do you have trouble paying for medicines?: No Do you have trouble getting transportation to medical appointments?: No Do you have trouble paying your heating and electricity bill?: No Do you have trouble taking care of your child, family member or friend?: No Do you have trouble with day-to-day activities such as bathing, preparing meals, shopping, managing finances, etc.?: No Are you currently unemployed and looking for a job?: No Are you interested in more education?: No THRIVE Score: 0 Review of Systems Const Denies chills, Denies fatigue, Denies fever(s), Denies headache(s) and Denies weakness ENT Denies dizziness and Denies headache(s) Card Denies chest pain, Denies lightheadedness, Denies dyspnea and Denies other (Palpitations) Resp Denies cough, Denies dyspnea, Denies wheezing and Denies other ( shortness of breath) Musc Denies numbness and Denies tingling Neuro Denies dizziness, Denies headache(s), Denies numbness, Denies tingling, Denies paresthesias and Denies weakness Psych Denies anxiety and Denies depression Endo Denies fatigue Aller/Immun Denies wheezing Physical exam (Primary Care) Vital Signs: Last Vital Signs Temp 97.9 F 11/13/24 11:00 Pulse 77 11/13/24 11:00 Resp 16 11/13/24 11:00 BP 160/90 H 11/13/24 11:00 Pulse Ox 99 11/13/24 11:00 Oxygen Delivery Method Room Air 11/13/24 11:00 BMI result Body Mass Index 32.7 Tobacco/Smoking Status: Tobacco use Status Tobacco use date assessed 10/25/23 11/13/24 10:57 Patient Tobacco Use Status Former Tobacco user 11/13/24 10:57 e-Cigarette/Vaping Use Never Used 11/13/24 10:57 PHQ-9: PHQ-9 Score PHQ-9: Total score 0 11/13/24 11:24 Thrive Assessment: Date of Thrive Assessment Date Thrive assessed 11/13/24 11/13/24 10:57 Const General: no acute distress and well developed Nutritional Appearance: well nourished Orientation/consciousness: patient oriented x3 HENMT Head: Yes normocephalic and Yes atraumatic Eyes General: appearance normal, both eyes and all related structures Pupils: Equal, round and reactive pupils present EOM: EOMs intact bilaterally Resp Effort & Inspection: normal respiratory effort Auscultation: clear to auscultation bilaterally Cardio Rate: regular rate Rhythm: regular rhythm Heart sounds: S1 normal heart sound present, S2 normal heart sound present, no gallops, no murmurs and no rubs Neuro General: patient oriented x3 and gait normal Cranial nerves: Yes Equal, round and reactive pupils present Psych Affect: normal affect Coding Level of Care Code Est Pt Level 3 (33641) Diagnoses Hypertension I10 Assessment & Plan Assessment & Plan (1) Hypertension: Code(s): I10 - Essential (primary) hypertension Category: Medical Plan: Blood?pressure?is?significantly?elevated?today. Patient?says?that?her?blood?pressure?is?elevated?because?she?is?under?stress Will?send?s cript?for?losartan.??She?will?check?her?blood?pressures?at?home?and?if?greater?t arana?140/90?she?will?start?medication. Will?have?her?follow-up?in?1?month Orders: Orders Lipid Panel Today E78.5 - Hyperlipidemia, unspecified, Z00.00 - Encounter for general adult medical examination without abnormal findings Comprehensive [place]. Panel Fast Today E78.5 - Hyperlipidemia, unspecified, Z00.00 - Encounter for general adult medical examination without abnormal findings Thyroid Stimulating Hormone Today E03.9 - Hypothyroidism, unspecified Free T4 (Free Thyroxine) Today E03.9 - Hypothyroidism, unspecified Triiodothyronine T3 Total Today E03.9 - Hypothyroidism, unspecified
[2024-11-13 11:00] VITALS: BP 160/90; PULSE 77; RESP 16; TEMP 36.6; O2SAT 99; BMI 32.7
--- OUTSIDE RECORDS SUMMARY | 2024-11-13 11:55 | XMS_ITS | Clinical Summary ---
Author Organization [facility] Address [address] [place] [address] Care Team Providers Care Fuel Cell Test Engineer Name Role Phone Chino Villatoro MD Primary Care Provider [phone] Allergies Active Allergy Reactions Criticality Noted Date [...] age to complete this topic Care Teams Fuel Cell Test Engineer Relationship Specialty Start Date End Date Chino Villatoro MD [address] [place] [address] PCP - General Family Medicine 07/28/21
--- OUTSIDE RECORDS SUMMARY | 2024-11-13 11:55 | XMS_ITS | Continuity of Care Document ---
Author Organization [facility] [address] [place] [address] Phone [phone] Care Team Providers Care Sales Forecast Analyst Name Role Phone Chino Villatoro MD Care Team Information Inspector Assembly [phone] Problems Active Problems Provider Date Follicular thyroid carcinoma Dima Godinez M.D. Onset: 10/19/2022 Social History Type Date Description Comments Sex Unknown Lives With Spouse ETOH Use Denies alcohol use Tobacco Use Start: Unknown End: Unknown Patient is a former smoker Allergies and adverse reactions Active Allergies Criticality Reaction Severity Comments Date Penicillin Unable to assess criticality 10/19/2022 Medications Active Medications SIG Qnty Indications Order ing Provider Date Levothyroxine [id number] Tablets Take One Tablet By Mouth 5 Days Per Week 1/2 Tablet 1 Day Per Week 90tabs Dima Godinez M.D. 10/16/2022 Premarin0.625mg/GM Cream Insert 0.5 Grams Vaginally Twice A Week Unknown Vital Signs Date Vital Result Comment 10/22/2023 1:09pm BP Systolic 130 mmHg BP Diastolic 92 mmHg Heart Rate 76 /min Height 60 inches 5'0 Weight 165.12 lb BMI (Body Mass Index) 32.2 kg/m2 Results Test Acquired Date Facility Test Result H/L Range Note TSH Rfx on Abnormal to Free T4 07/13/2024 [facility] TSH RFX On Abnormal To Free T4 0.259 uIU/mL Low 0.450-4.5 00 T4,Free (Direct) 1.62 ng/dL 0.82 -1.77 Laboratory test finding 02/21/2024 [facility] TSH RFX On Abnormal To Free T4 <pending> Laboratory test finding 02/11/2024 [facility] TSH reflex to T4F 0.044 uIU/mL Low 0.450-4.5 00 TgAb+Thyroglobu deanna,Corina or LCMS 02/11/2024 [facility] Thyroglobulin by LCMS <0.2 ng/mL Low 1.5-38.5 1 Laboratory test finding 10/25/2023 [facility] TSH With Reflex To FT4 <pending> Laboratory test finding 10/22/2023 [facility] TSH With Reflex To FT4 0.10 uIU/mL Low (0.4-4.2) Free T4 1.43 ng/dL (0.70-1.8 0) Laboratory test finding 10/19/2022 [facility] TSH With Reflex To FT4 0.55 uIU/mL (0.4-4.2) 1 This test was develo ped and its performance characteristics determined by [facility]. It has not been cleared or approved by the Food and Drug Administration. According to the National Academy of Clinical Biochemistry, the reference interval for Thyroglobulin (TG) should be related to euthyroid patients and not for patients who underwent thyroidectomy. TG reference intervals for these patients depend on the residual mass of the thyroid tissue left after surgery. Establishing a post-operative baseline is recommended. The assay limit of quantitation is 0.2 ng/mL Medical Devices Description No Information Available Encounters Type Date Location Provider Dx Diagnosis Office Visit 10/22/2023 1:15p Main Office Dima Johnson M.D. C73 Malignant neoplasm of thyroid gland Assessments Date Code Description Provider 10/25/2023 C73 Malignant neoplasm of thyroi d gland Dima Godinez M.D. 10/22/2023 C73 Malignant neoplasm of thyroi d gland Dima Godinez M.D. Plan of Treatment Future Appointment(s):* 12/23/2024 2:45 pm - Dima Godinez M.D. at Main Office 10/19/2022 - Dima Godinez M.D.* C73 Follicular thyroid carcinoma * E03.9 Hypothyroidism * E04.1 Nontoxic single thyroid nodule Functional Status Description No Information Available Mental Status Description No Information Available Referrals Description No Information Available
--- OUTSIDE RECORDS SUMMARY | 2024-11-13 11:55 | XMS_ITS | Patient Health Record ---
Author Organization [facility] Address [address] [place] [id number] Care Team Providers Care Risk And Insurance Manager Name Role Phone Chino Villatoro Primary Care Provider Manuel Hubbard Unavailable [phone] Allergies Allergen (clinical drug ingredient) Drug/Non Drug Allergy documented on EMR Reaction Allergy Type Onset Date Status Penicillin Unknown Drug Allergy Active Reason For Referral No Information Medications Medication SIG (Take, Route, Frequency, Duration) Notes Start Date End Date Status Escitalopram Oxalate 20 MG 1 tablet Oral ly Once a day Active Levothyroxine Sodium 112 MCG 1 capsule Orally Once a day Active predniSONE 5 MG 8 tabs po daily for1 week,and then decrease by 1 pill per week Orally Once a day for 30 days 09/22/2013 Not-Taking Lialda 1.2 GM 4 Orally QD for 30 Not-Taking LORazepam 0.5 MG 1 tablet as needed Orally prn Active Immunizations Vaccine Route Administration Date Status Comme nts Influenza Unknown 01/16/2023 Refused Social History Alcohol Screen Question Answer Notes Did you have a drink containing alcohol in the p ast year? No Points 0 Interpretation Negative Section Notes: Nonsmoker; occasional alcoho l Nonsmoker; occasional alcoho l Nonsmoker; occasional alcoho l Nonsmoker; occasional alcoho l Nonsmoker; occasional alcoho l Problems Problem Type SNOMED Code ICD Code Onset Dates Problem Status W/U Status Risk Notes Problem [id number] Encounter for screening for malignant neoplasm of colon (Z12.11) Active confirmed Problem [id number] Ulcerative pancolitis without complication (K51.00) Active confirmed Problem Ulcerative pancolitis (450351829) Ulcerative pancolitis (K51.00) Active confirmed Plan Of Treatment Pending Test Test Name Order Date HEPATITIS B PROFILE 11/03/2013 US ABD 04/28/2013 Pathology 04/08/2023 Future Test Test Name Order Date COLONOSCOPY 11/03/2013 COLONOSCOPY 02/06/2017 COLONOSCOPY 01/16/2023 Insurance Providers Payer Name Payer Address Payer Phone Subscriber Number Group Number Insured Name Patient Relationship to Insured Coverage Start Date Coverage End Date [employer] PPO [address] [place] [phone] [id number] ELBA ABURTO Self - patient is the insured Medical (General) History Medical History History ICD Code Ulcerative colitis--since ag e 18-previous colonoscopies have shown evidence of chronic colitis involving the left and right colon Hypothyroidism Colonoscopy in --no active coliti s, no dysplasia Denies [place],DM,CVA,Lung disease,renal dise ase Neg abdominal U/S in 05/2013, except for non-visualization of the spleen(never had surgery) Bronchitis Colonoscopy with Dr. Ba dowling at the [facility] in 03/2014--no active colitis-no dysplasia, no polyps Depression Colonoscopy June of 2017 was negative for any sign of active colitis nor polyps. Biopsies throughout the colon were negative for dysplasia. Surgical History Surgery Date(Month/Year) Partial Thyroidectomy
== END 2024-11-13 11:38 | disposition home or self-care (01) ==
PROVIDERS: PCP Family Medicine; Visit Provider Family Medicine
DX: I10 Essential (primary) hypertension (principal)

== ENCOUNTER 2025-01-14 20:14 | Emergency (ER) | payer OTHER, SELFPAY ==
--- NOTE | ~2025-01-14 | CT_ITS ---
CLINICAL HISTORY: severe headache CT angiography head and neck with contrast. 3D Postprocessing. Comparison: CT/SR - CT HEAD/BRAIN WO IV CON - 01/14/25 20:40 EDT Findings: Just proximal to the distal most extracranial bilateral internal carotid arteries (which are significantly tortuous), there is a slightly beaded appearance to both vessels. Intracranial arteries are patent. No aneurysm, dissection, hemodynamically significant stenoses, or occlusion. No abnormal intracranial enhancement. The visualized thyroid gland is unremarkable. No cervical mass or fluid collection. Mild atelectasis in the upper lungs. No acute fracture. IMPRESSION: 1. Aortic arch and cervical great vessels are widely patent. Patent head and neck CTA. 2. Slightly beaded appearance of distal bilateral extracranial internal carotid arteries. Consider fibromuscular dysplasia. This document has been electronically signed by: Chema Ferrell MD on 01/14/2025 23:06:25
--- NOTE | ~2025-01-14 | CT_ITS ---
CLINICAL HISTORY: headache, HTN CT head without contrast Comparison: None Findings: No intra-axial mass, midline shift, hydrocephalus, or acute hemorrhage. No significant atrophy-like change or white matter disease. There is no sinus or mastoid fluid. The orbits are within normal limits. No skull fracture. IMPRESSION: 1. No acute intracranial findings. This document has been electronically signed by: Chema Ferrell MD on 01/14/2025 21:45:32
--- NOTE | 2025-01-14 20:28 | ED_ITS ---
HPI - General Adult General Chief complaint: Headache Stated complaint: shooting pain in head; blurry vision Time Seen by Provider: 01/14/25 21:34 Source: patient and family Mode of arrival: ambulatory Limitations: no limitations History of Present Illness ED Provider: GRANT LESLIE narrative: 64 yo female not on blood thinners, hx of hypothyroidism, monitoring HTN with PCP who notes at 7pm was driving home after casual dinner with friends and developed headache back of head top of skull while driving. Mild nausea and felt both eyes went blurry no weakness/numbness. No fevers and no recent trauma. No neck manipulation or whiplash. She states she has had no recent URIs and felt fine. She took no OTC medications for it. It has improved since it started. No LOC. MD complaint: headache Onset (ago): hour(s) (7pm today) Location: head Radiation: non-radiation Severity: moderate Quality: aching Pain Consistency: other (improved) Relieving factors: none Exacerbating factors: none Associated symptoms: nausea/vomiting Treatments prior to arrival: none Related Data Previous Rx's ?Medication ?Instructions ?Recorded levothyroxine 125 mcg tablet 125 mcg PO DAILY 90 days #90 tabs 11/26/22 atorvastatin 40 mg tablet 40 mg PO BEDTIME 90 days #90 tabs 08/07/23 escitalopram oxalate 20 mg tablet 20 mg PO DAILY 90 days #90 caps 05/14/24 amlodipine 5 mg tablet 5 mg PO DAILY #30 tabs 01/14/25 Allergies Allergy/AdvReac Type Severity Reaction Status Date / Time Penicillins [PENICILLINS] Allergy Unknown RASH Verified 01/14/25 20:31 Review of Systems 2 Review of Systems: Constitutional : No Fever, No Chills, No Fatigue ENT/Mouth : No sore throat, No Rhinorrhea Eyes: No Eye Pain, No Swelling, No Redness Cardiovascular : No Chest Pain, No SOB, No Dyspnea on Exertion Respiratory : No Cough, No Sputum Gastrointestinal : pos Nausea, No Vomiting, No Diarrhea, No abdominal Pain Genitourinary : No Dysuria, No Urinary Frequency, No Hematuria, Musculoskeletal : No joint pain, No Myalgias, No Joint Swelling Skin : No Skin Lesions, No rash Neuro : No Weakness, No Numbness, No Dizziness, positive Headache All other systems reviewed and are negative [facility] Past Medical History Attestation statement: The following information was validated with the patient. Source: old records reviewed Medical History Bronchitis Ulcerative colitis Anxiety with depression Hypothyroidism Hyperlipidemia Surgical History H/O partial thyroidectomy Family History Family History Mother Diabetes Social History Social History Housing: House Alcohol intake: former Patient Tobacco Use Status: Former Tobacco user Smoked in Last 30 Days: No e-Cigarette/Vaping Use: Never Used Use of substances other than those prescribed or required for medical reasons: No Advance Directives: No Advance Directives Information Provided: Yes Patient : No service: No Current occupational status: employed 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 Oriented X3. No acute distress. Eyes: Pupils equal, round and reactive to light. ENT: Pharynx normal. TMs normal, no meningeal signs Neck: Normal inspection. Neck supple. CVS: Normal heart rate and rhythm. Pulses normal. Respiratory: No respiratory distress. Breath sounds normal. Abdomen: Soft and nontender. Skin: Skin warm and dry. Normal skin color. Normal skin turgor. Extremities: No lower extremity edema. No calf ttp Neuro: Oriented X 3. No motor deficit. No sensory deficit. CN2-12 intact NIH Stroke Scale Internal: Initial- Upon Arrival Level of Consciousness: Alert Level of Consciousness Questions: Answers both questions correctly Level of Consciousness Commands: Performs both tasks correctly Best Gaze: Normal Visual: No visual loss Facial Palsy: Normal Motor Arm (Right): No drift Motor Arm (Left): No drift Motor Leg (Right): No drift Motor Leg (Left): No drift Limb Ataxia: Absent Sensory: Normal Best Language: No aphasia Dysarthia: Normal Extinction and Inattention: No abnormality Score: 0 Course Course Course Narrative: This is a rapid medical exam performed by Rosario Bejarano NP: Additional HPI, ROS, PE not included below will be deferred to primary provider. 64 yo female accompanied by with PMHx of HTN, UC, HLD, hypothyroidism, Patient went to dinner, while walking to car experiencing shooting pain in occipital, began driving and had to hide puller due to increasing pain and inability to visually focus with mild nausea. States this is first episode, has not experienced anything similar. Denies ETOH, vomiting, chest pain, SOB. PE: A&O x3 no neuro deficits, Hypertensive 185/88 Plan: labs, EKG, CT head Medications Administered Discontinued Medications Generic Name Dose Route Start Last Admin Trade Name Freq PRN Reason Stop Dose Admin Acetaminophen 1,000 mg in 100 mls @ 400 mls/hr 01/14/25 21:39 01/14/25 22:03 Ofirmev IV 01/14/25 21:53 Infused ONCE ONE Infusion Iohexol 75 ml 01/14/25 22:07 01/14/25 22:08 Iohexol 350 Mg/Ml 100 Ml Infus..Btl IV 01/14/25 22:08 75 ml ONCE ONE Administration Ondansetron HCl 4 mg 01/14/25 21:39 01/14/25 21:48 Ondansetron Hcl 4 Mg/2 Ml Vial IVPUSH 01/14/25 21:40 4 mg ONCE ONE Administration Medical Decision Making Medical Decision Making [facility] Narrative: 64 yo female not on blood thinners, hx of hypothyroidism, monitoring HTN with PCP now here with headaches sudden onset no trauma at rest and no meningeal signs or neuro symptoms - at this time will obtain basic labs, CT head for SAH if negative obtain CTA for SAH - will treat BP as well if it remains elevated. 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 01/14/25 21:16 01/14/25 21:16 Labs: Lab Results 01/14/25 Range/Units 21:16 WBC 11.2 H (4.8-10.8) X10*3/uL RBC 4.47 (4.20-5.50) X10*6/uL Hgb 13.2 (12.0-16.0) g/dl Hct 38.1 (37.0-47.0) % MCV 85.2 (80.0-98.0) fL MCH 29.5 (27.0-33.0) pg MCHC 34.6 (31.0-35.0) g/dl RDW 14.6 (11.0-16.0) % Plt Count 278 (160-400) X10*3/uL MPV 10.7 (9.4-12.3) fL Immature Gran % (Auto) 0.6 H (0.0-0.4) % Neut % (Auto) 72.3 (45-73) % Lymph % (Auto) 20.1 (20-40) % Rincon % (Auto) 6.8 (2-11) % Eos % (Auto) 0.0 (0-4) % Baso % (Auto) 0.2 (0-2) % Lymph # (Auto) 2.3 (1.2-4.9) X10*3/uL Rincon # (Auto) 0.8 (0.1-1.2) X10*3/uL Eos # (Auto) 0.0 (0.0-0.4) X10*3/uL Baso # (Auto) 0.0 (0.0-0.2) X10*3/uL Abs Immat Gran (auto) 0.07 H (0.00-0.03) X10*3/uL Absolute Neuts (auto) 8.1 (2.0-8.3) x10*3/uL Absolute Nucleated RBC 0.000 (0.0-0.012) X10*3/uL Nucleated RBC % (auto) 0.0 (0.0-0.2) /100WBC Sodium 140 (135-145) mmol/L Potassium 4.5 (3.3-5.1) mmol/L Chloride 108 (96-108) mmol/L Carbon Dioxide 23 (22-29) mmol/L Anion Gap 14 (12-20) BUN 29 H (9-16) mg/dL Creatinine 1.08 (0.5-1.4) mg/dL Estim Creat Clear Calc 46.8 Estimated GFR 51 Random Glucose 113 (60-115) mg/dL Calcium 10.0 (8.4-10.2) mg/dL Total Bilirubin 0.3 (0.0-1.0) mg/dL AST 22 (5-31) U/L ALT 14 (0-31) U/L Alkaline Phosphatase 51 (39-117) U/L Total Protein 7.7 (6.5-8.0) g/dL Albumin 4.6 (3.5-5.0) g/dL Independent Interpretation I performed an independent interpretation of an: CT Scan (no acute findings other than fibromuscular dysplasia) Radiology Impression Discussion of test interpretation with radiology: I have reviewed the radiologist's reading. Independent Historian Clinical information obtained from an independent historian. History obtained from or confirmed by: Spouse External Record Review External record reviewed: Outpatient record Prescription Management I considered prescription management with: Other Discharge Plan Discharge Clinical Impression: Tension headache, Hypertension, uncontrolled Patient Disposition: Home, Self-Care Instructions: How to Take a Blood Pressure Reading (ED), Acute Headache (ED), Hypertension (ED) Additional Instructions: return for numbness, weakness, severe headaches, confusion or any other concerns you need to call your doctor for an appointment tomorrow as soon as possible you will need to start blood pressure medications tomorrow but I suspect they will need to be increased you will also need an ultrasound of your renal vessels start 81mg aspirin daily Findings: Just proximal to the distal most extracranial bilateral internal carotid arteries (which are significantly tortuous), there is a slightly beaded appearance to both vessels. Intracranial arteries are patent. No aneurysm, dissection, hemodynamically significant stenoses, or occlusion. No abnormal intracranial enhancement. The visualized thyroid gland is unremarkable. No cervical mass or fluid collection. Mild atelectasis in the upper lungs. No acute fracture. IMPRESSION: 1. Aortic arch and cervical great vessels are widely patent. Patent head and neck CTA. 2. Slightly beaded appearance of distal bilateral extracranial internal carotid arteries. Consider fibromuscular dysplasia. This document has been electronically signed by: Chema Ferrell MD on 01/14/2025 23:06:25 Prescriptions: New amlodipine 5 mg tablet 5 mg PO DAILY Qty: 30 2RF No Action levothyroxine 125 mcg tablet 125 mcg PO DAILY 90 Days Qty: 90 1RF escitalopram oxalate 20 mg tablet 20 mg PO DAILY 90 Days Qty: 90 3RF atorvastatin 40 mg tablet 40 mg PO BEDTIME 90 Days Qty: 90 2RF Print Language: Faroese
[2025-01-14 20:29] VITALS: BP 185/88; PULSE 67; RESP 20; TEMP 36.8; O2SAT 99; BMI 31.2
--- NOTE | 2025-01-14 20:32 | ECG_ITS ---
Test Reason : WEAKNESS Blood Pressure : */* mmHG Vent. Rate : 61 BPM Atrial Rate : 61 BPM P-R Int : 168 ms QRS Dur : 82 ms QT Int : 422 ms P-R-T Axes : 59 14 25 degrees QTcB Int : 424 ms Normal sinus rhythm Septal infarct , age undetermined Abnormal ECG No previous ECGs available Referred By: Joann Bejarano Electronically Signed By: DOE MENDOZA
--- OUTSIDE RECORDS SUMMARY | 2025-01-14 20:54 | XMS_ITS ---
Author Name [facility] Organization Unknown Care Team Organization Name Specialty Phone Email Start Date End [facility] DILLAN ALBRECHT Primary Care 08/09/2022 04/27/2024
--- OUTSIDE RECORDS SUMMARY | 2025-01-14 20:54 | XMS_ITS | Clinical Summary ---
Author Organization [facility] Address [address] [place] [id number] Care Team Providers Care Community Artist Name Role Phone Chino Villatoro MD Primary Care Provider [phone] Allergies Active Allergy Reactions Criticality Noted Date [...] age to complete this topic Care Teams Community Artist Relationship Specialty Start Date End Date Chino Villatoro MD [address] [place] [address] PCP - General Family Medicine 07/28/21
--- OUTSIDE RECORDS SUMMARY | 2025-01-14 20:54 | XMS_ITS | Clinical Summary ---
Author Organization [facility] Address [address] [place] [address] Care Team Providers Care Samples And Repairs Preparer Name Role Phone Community, Pcp Primary Care Provider Unavailabl e Allergies Active Allergy Reactions Severity Noted Date Comments Penicillins 11/27/2016 Medications Medication Sig Dispensed Refills Start Date End Date Status Mesalamine (LIALDA OR) Take by mouth. 0 Active levothyroxine 112 MCG tablet Take 112 mcg by mouth daily. 0 Active escitalopram (LEXAPRO) 20 MG tablet Take 20 mg by mouth daily. 0 Active lorazepam (ATIVAN) 0.5 MG tablet Take 0.5 mg by mouth every 6 hours as needed. 0 Active Social History Tobacco Use Types Packs/Day Years Used Date Smoking Tobacco: Never Assessed Sex Assigned at Date Recorded Not on file Plan of Treatment Health Maintenance Due Date Last Done Comments Covid-19 Vaccine (#1) 1960 HEPATITIS C SCREENING 01/25/1978 TOBACCO CHECK/ADVISE 01/25/1978 DTAP/TDAP/TD (1 - Tdap) 01/25/1979 CHOLESTEROL SCREENING 1980 CERVICAL CANCER SCREENING 01/25/1981 MAMMOGRAM 2000 COLON CANCER SCREENING 01/25/2010 SHINGLES VACCINE (1 of 2) 01/25/2010 BMI CHECK/ADVISE 09/09/2024 PNEUMOCOCCAL VACCINE FOR HIGH RISK PATIENTS (#1) 01/25 INFLUENZA (Season Ended) 2025 Care Teams Samples And Repairs Preparer Relationship Specialty Start Date End Date Community, Pcp PCP - General Internal Medicine 10/19/16
--- OUTSIDE RECORDS SUMMARY | 2025-01-14 20:54 | XMS_ITS | Continuity of Care Document ---
Author Organization [facility] Address [address] [place] [address] Care Team Providers Care Furnace Checker Name Role Phone DILLAN ALBRECHT Primary Care Provider [phone] Assessment No assessment recorded. Plan of Treatment Reminders Order Date Submit Date Provider Last Modified By Organization Details Last Modified Time Details Appointments RECHECK 15 2024 08:30A M Cain Kitchen PA-C Not available Not available Not available Lab None recorded . Referral None recorded . Procedures None recorded . Surgeries None recorded . Imaging None recorded . Medication Orders None recorded . Patient TargetsNo targets recorded. Patient InstructionsNo instructions recorded. Reason for Referral None Reported. Procedures Surgical History Date Name Laterality Status Provider Name and Address Organization Details Recorded Time Sports Shoulder 4&1 completed Cain Kitchen PA-C [address] [facility], [place], [address], [facility] 01/11/2025 17:15:32 4 Sports Shoulder 4&1 completed Cain Kitchen PA-C [address], [place], [address], [facility] 07/20/2024 07:27:37 4 Sports Shoulder 4&1 completed Cain Kitchne PA-C [address], [place], [address], [facility] 04/17/2024 08:48:53 Other completed BRYN HAGAN [facility] 01/11/2025 14:28:22 Imaging Results None recorded. Procedure Notes None recorded. Medical Equipment None Reported. Allergies Allergen ID Allergen Name Allergen Category Reaction Reaction Severity Criticality Documentation Date Start Date Code Code System Note Provider Name and Address Organization Details Recorded Time 77189 penicilli n G benzathin e medicatio n Not available Not available Not available 11/11/20232017 7982 RxNorm Not Available [facility] 11:39:18 Medications Name Sig Start Date Stop Date Status Note LastModified by Organization Details LastModified Time atorvastatin 40 mg tablet TAKE ONE TABLET BY MOUTH AT BEDTIME active Not Available Not Available No t Available IBU 600 mg tablet TAKE ONE TABLET BY MOUTH EVERY 6 HOURS FOR 7 DAYS active Not Available Not Available No t Available levothyroxine 125 mcg tablet TAKE 1 TABLET BY MOUTH 6 DAUS A WEEK DIRECTED active Not Available Not Available No t Available escitalopram 20 mg tablet TAKE ONE TABLET BY MOUTH EVERY DAY active Not Available Not Available No t Available Premarin 0.625 mg/gram vaginal cream INSERT 0.5 GRAMS VAGINALLY TWICE A WEEK active Not Available Not Available No t Available THSC Levothyroxine Sodium active Not Available Not Available Not Available Vitals Date Recorded Body height Provider Name an d Address Organization Details Last Updated DateTime 01/11/2025 152.4 cm BRYN HAGAN [place] [facility] 01/11/2025 14:28:25 Social History None recorded. Functional Status None recorded. Mental Status None recorded. Family History Nothing Reported. Medical History Condition Response Thyroid Problems Y Gynecological HistoryNo gynecological history recorded. Obstetrics History GPAL:G 0 P 0 0 0 0 Past Encounters Encounter ID Performer Location Encounter Start Date Encounter Closed Date Diagnosis/Indication Diagnosis SNOMED-CT Code Diagnosis ICD10 Code Diagnosis Note [id number] [facility] [address] [place] [address] 01/11/2025 14:23:12 01/11/2025 17:15:59 Impingement syndrome of left shoulder region [id number] 97359 M75.42 Health Concerns Section Related Observation LastModified by Organization Detai ls LastModified Time None Recorded Concern Status LastModified by Organization Details LastModified Time None Recorded Payers Encounter Date Sequence Insurance Name Policy Number Policy Hinds Covered Member ID Hinds Member ID Guarantor Name 01/11/2025 1 [facility] [id number] Alicia Jaimes [id number] Alicia Jaimes Notes Date Note Type Note Provider Name and Address Organization Details Recorded Time 01/11/2025 text/html I am seeing the patient today under the supervision of {{Libra Montiel} } who was available but who did not see the patient. Reason For Visit Patient comes to the office with know rotator cuff tendonitis. The patient has done well with conservative management for their {{right Left*}} shoulder pain. Has had increasing discomfort over the past several weeks without injury. Pain is generalized about the shoulder. Off and on discomfort is noted at night. Past Medical/Surgical History Current medications per intake sheet. Physical Findings The patient is well appearing, in no apparent distress, alert and oriented to person, place and time. Gait is symmetric. No significant swelling, warmth or erythema about either shoulder. There is mild tenderness to palpation about the shoulder. Active range of motion of the shoulder is near full with mild to moderate pain through mid range manipulations. 4/5 strength of the shoulder, but the rotator cuff seems to fire well. Good stability of the shoulder. Peripheral, vascular, lymphatic examination, skin, neurologic coordination, reflexes, sensation are within normal limits. Assessment Rotator cuff tendonitis of the {{right Left*}} shoulder. plan The patient has done well with conservative management in regards to the shoulder. Continued conservative management recommended. Moderating activities with the upper extremity recommended also. Injection was performed into the subacromial space. Injected 80mg of Kenalog and 8cc of 1/4% Marcaine under sterile conditions into the left shoulder subacromial space. Patient tolerated the injection well. Moderating activities with the upper extremity recommended. The patient will follow up prn. [facility]is [address], [place], [address], [facility] 01/11/2025 17:15:58 OBGyn Episode No OBEpisode recorded.
--- OUTSIDE RECORDS SUMMARY | 2025-01-14 20:54 | XMS_ITS | Continuity of Care Document ---
Author Organization [facility] [address] [facility] [address] [place] [address] Phone [phone] Care Team Providers Care End Stapler Name Role Phone Chino Villatoro MD Care Team Information Brace Maker [phone] Problems Active Problems Provider Date Follicular thyroid [...] Qnty Indications Order ing Provider Date Levothyroxine [id number] Tablets Take One Tablet By Mouth 5 1/2 Days Per Week 90tabs Dima Godinez M.D. 10/16/2022 Premarin0.625mg/GM Cream Insert 0.5 Grams Vaginally Twice A Week Unknown Vital Signs Date Vital Result Comment 12/23/2024 2:39pm BP Systolic 140 mmHg BP Diastolic 90 mmHg Heart Rate 72 /min Height 60 inches 5'0 Weight 166.38 lb BMI (Body Mass Index) 32.5 kg/m2 Results Test Acquired Date Facility Test Result H/L Range N ote TSH Rfx on Abnormal to Free T4 07/13/2024 [facility] TSH RFX On Abnormal To Free T4 0.259 uIU/mL Low 0.450-4.5 00 T4,Free (Direct) 1.62 ng/dL 0.82 -1.77 TSH RFX On Abnormal To Free T4 02/21/2024 [facility] TSH RFX On Abnormal To Free T4 <pending> TSH reflex to T4F 02/11/2024 [facility] TSH reflex to T4F 0.044 uIU/mL Low 0.450-4.5 00 TgAb+Thyroglo bulin,Corina or LCMS 02/11/2024 [facility] Thyroglobulin by LCMS <0.2 ng/mL Low 1.5-38.5 1 TSH With Reflex To FT4 10/25/2023 [facility] TSH With Reflex To FT4 <pending> TSH With Reflex To FT4 10/22/2023 [facility] TSH With Reflex To FT4 0.10 uIU/mL Low (0.4-4.2) Free T4 10/22/2023 [facility] Free T4 1.43 ng/dL (0.70-1.8 0) TSH With Reflex To FT4 10/19/2022 [facility] TSH With Reflex To FT4 [...] Godinez M.D. Plan of Treatment Future Appointment(s):* 12/23/2025 8:30 am - Dima Godinez M.D. at Main Office 10/19/2022 - Dima Godinez M.D.* C73 Follicular thyroid carcinoma * E03.9 Hypothyroidism * E04.1 Nontoxic single thyroid nodule Functional Status Description No Information Available Mental Status Description No Information Available Referrals Description No Information Available
--- OUTSIDE RECORDS SUMMARY | 2025-01-14 20:54 | XMS_ITS | Data Portability ---
Author Organization [facility], [facility] Address [address] [place] [address] Care Team Providers Care Erisa Attorney Name Role Phone TRENA DILLAN Primary Care Provider [phone] Assessment No assessment recorded. Plan of Treatment Reminders Order Date Submit Date Provider Last Modified By Organization Details Last Modified Time Details Appointments RECHECK 15 2024 08:30A M Cain Kitchen PA-C Not available Not available Not available Lab None recorded. Referral None recorded. Procedures None recorded. Surgeries None recorded. Imaging MRI, shoulder, w/o contrast - r/o RCT 2023 024 [email or web address] [facility] ([facility]), [address], [place], [address], 07/06/2024 11:40:13 XR, shoulder, 2 or more view - ROOM 208, left shoulder pain 2023 [facility]24 [facility], [address], [facility] [address], [place], [address], 04/17/2024 11:50:40 Medication Orders None recorded. Patient TargetsNo targets recorded. Patient InstructionsNo instructions recorded. Reason for Referral None Reported. Results Created Date Observation Date Name Description Value Unit Range Abnormal Flag Note LastModifiedBy Organization Detail LastModifiedTime 04/17/20 24 04/17/2024 XR, shoul maria ines, 2 or more view http:/ [email or web address] ?Encry pted=s hAaTro YD8dLq bEUv6g %2BXZw aYqtaq 0bqfl% 2Fg9IQ a4ajBk vP9nXo QUaueC m3YtLR FvZlgJ JJ8mAn HZtai3 3h9127 AC0Kob X%2BFV aXeUC8 mr84%3 D INTERFACE [facility] [address], [place], [address], 04/17/2024 08:56:57 04/17/20 24 04/17/2024 XRsamantha, 2 or more view [email or web address]:/ [email or web address] ?Encry pted=s hAaTro YD8dLq bEUv6g %2BXZw aYqtaq 0bqfl% 2Fg9IQ a4ajBk vP9nXo QUaueC m3YtLR FvZlgJ JJ8mAn HZtai3 2z4236 AC0Kob X%2BFV aXeUC8 mr84%3 D INTERFACE [facility] [address] [facility] [address], [place], [address], 04/17/2024 08:56:58 06/23/20 24 06/21/2024 MRI, samantha spann, w/o contr ast [facility] Access ion Number : [id number] [address] Name: Alicia So Record Number : [id number] Date of : 1959 Date of Exam: 2023 Referr ing Physic bethany: [facility] [address], [address] [place] [address] Exam: MR Should er (C-) CPT 95665 - Left Room Descri ption: Grimes GE Pion 3T Should er MRI left Clinic al Histor y: Pain Findin gs: Mild acromi oclavi cular osteoa rthrit is. Supras pinatu s and infras pinatu s tendin opathy . Superi mposed small low-gr rui partia l articu lar surfac e tear within reid hed fibers of the supras pinatu s tendon . The teres minor tendon is intact . The subsca pulari s tendon is intact . The long head of the biceps tendon is intact . Marked thinni ng and irregu larity within superi or glenoh umeral cartil age. 1.5 x 1 x 1.5 cm focus of interm ediate T2 signal in the subcor acoid recess Impres lul: Supras pinatu s and infras pinatu s tendin opathy .Super impose d small, low-gr rui partia l supras pinatu s tear. 1.5 cm focus of interm ediate signal within the subcor acoid recess may be an area of focal synovi tis. Mild acromi oclavi cular osteoa rthrit is. Glenoh umeral chondr omalac ia is outlin ed above. Electr onical ly Signed By: Paula davis 1 [facility] ([facility]) [address], [place], [address], 06/25/2024 14:31:54 Result Notes None recorded. Procedures Surgical History Date Name Laterality Status Provider Name and Address Organization Details Recorded Time 5 Sports Shoulder 4&1 completed Cain Kitchen PA-C [address], [place], [address], [facility] 01/11/2025 17:15:32 4 Sports Shoulder 4&1 completed Cain Kitchen PA-C [address], [place], [address], [facility] 07/20/2024 07:27:37 4 Sports Shoulder 4&1 completed Cain Kitchen PA-C [address], [place], [address], [facility] 04/17/2024 08:48:53 Other completed BRYN HAGAN [facility] 01/11/2025 14:28:22 Imaging Results Imaging Date Name Status LastModified by Organiz ation Details LastModified Time 04/17/2024 XR, shoulder, 2 or more view completed INTERFACE [facility] [address], [place], [address], 04/17/2024 08:56:57 04/17/2024 XR, shoulder, 2 or more view completed INTERFACE [facility] [address], [place], [address], 04/17/2024 08:56:58 06/21/2024 [facility], [facility], w[facility] contrast [email or web address] [address], [place], [address], 06/25/2024 14:31:54 Procedure Notes None recorded. Medical Equipment None Reported. Allergies Allergen ID Allergen Name Allergen Category Reaction Reaction Severity Criticality Documentation Date Start Date Code Code System Note Provider Name and Address Organization Details Recorded Time 90617 penicilli n G benzathin e medicatio n Not available Not available Not available 11/11/20232017 7982 RxNorm Not Available [facility] 11:39[facility]18 Medications Name Sig Start Date [...] Not Available Vitals Date Recorded Body height Body mass index (BMI) Body weight Provider Name and Address Organization Details Last Updated DateTime 07/13/2024 152.4 cm 31.2 kg/m2 13190.78 g BRYN HAGAN [facility] 07/13/2024 10:28:01 Date Recorded Body height Provider Name an d Address Organization Details Last Updated DateTime 01/11/2025 152.4 cm BRYN HAGAN [facility] 01/11/2025 14:28:25 Social History None recorded. Functional Status None recorded. Mental Status None recorded. Family History Nothing Reported. Medical History Condition Response Thyroid Problems Y Gynecological HistoryNo gynecological history recorded. Obstetrics History GPAL:G 0 P 0 0 0 0 Past Encounters Encounter ID Performer Location Encounter Start Date Encounter Closed Date Diagnosis/Indication Diagnosis SNOMED-CT Code Diagnosis ICD10 Code Diagnosis Note [id number] VALERIE Gillis [address] [place] [place] [address] 04/17/2024 08:35:06 04/17/2024 10:00:53 Pain of left shoulder joint [id number] 6257267 M25.634 [id number] VALERIE Gillis [address] [place] [address] 06/11/2024 14:00:11 07/06/2024 11:40:13 Pain of left shoulder joint [id number] 1506157 M25.895 [id number] VALERIE Gillis Clinical [address] [place] [address] 07/13/2024 10:16:27 08/05/2024 11:59:20 Impingement syndrome of left shoulder region [id number] 66319 M75.42 [id number] VALERIE [facility] [address] [place] [address] 01/11/2025 14:23:12 01/11/2025 17:15:59 Impingement syndrome of left shoulder region 3539154231 49047 M75.42 Health Concerns Section Related Observation LastModified by Organization Detai ls LastModified Time None Recorded Concern Status LastModified by Organization Details LastModified Time None Recorded Advance Directives Directive None Recorded Payers Encounter Date Sequence Insurance Name Policy Number Policy Hinds Covered Member ID Hinds Member ID Guarantor Name 04/17/2024 1 [facility] [id number] Alicia Jaimes [id number] Alicia Jaimes 06/11/2024 1 [facility] [id number] Alicia Jaimes [id number] Alicia Jaimes 07/13/2024 1 [facility] [id number] Alicia Jaimes [id number] Alicia Jaimes 01/11/2025 1 [facility] [id number] Alicia Jaimes [id number] Alicia Jaimes Notes Date Note Type Note Provider Name and Address Organization Details Recorded Time 04/17/2024 text/html I am seeing the patient today under the supervision of Dr. Vargas who was available but who did not see the patient.Diagnosis:left shoulder impingement with rotator cuff tendinitisthis pleasant woman presents today with left shoulder pain. Pain with reaching and lifting. Difficulty sleeping on her side.Past Medical/Surgical History/Meds/Allergies reviewed and chartedPhysical Exam:afebrile, vital signs stable, in no apparent distress,oriented to person/place/time.Gait symmetric.skin intact without erythema.Right SHOULDER: [no redness, warmth, deformity]. Range of motion [full in all planes with no stiffness]. Strength [5/5 all muscle groups, mild pain with supraspinatus testing]. Apprehension [negative]. Impingement sign positive. Acromioclavicular joint tender. Neurovascular Exam [wnl].Left SHOULDER: no redness, warmth, deformity. Range of motion [full in all planes with no stiffness]. Strength [5/5 all muscle groups]. Apprehension [negative]. Impingement sign [negative ]. Acromioclavicular joint [benign with no cross body adduction pain]. Neurovascular Exam wnl.Radiographs: 4 views ordered obtained and reviewed today in the office of the left shoulder show type III acromion. No glenohumeral arthritis. AC joint arthritis.Impression: left shoulder impingement with rotator cuff tendinitisPlan: 1. In regards to her shoulder recommend a subacromial cortisone injection. After reviewing risks and benefits and obtaining verbal consent the patient's right shoulder was injected with 2 cc of Kenalog 40 mg/cc 4 cc of Marcaine 1/4%. She tolerated this procedure well. Postinjection precautions reviewed. Follow-up with us as needed. Physical therapy we recommended if symptoms persist.[facility] speech recognition feed adviser software was used to create portions of this document. An attempt at proofreading has been made to minimize errors. Please call for corrections. Cain Kitchen PA-C [address], [place], [address], [facility] 05/12/2024 14:24:12 06/11/2024 text/html Dx: Left shoulde r rotator cuff tendinitis versus tearInterval History: Pleasant woman presents today for recheck of her left shoulder, received a cortisone injection roughly 6 weeks ago which gave her mild benefit how she still has difficulty sleeping as well as overhead reaching and lifting. She wishes to further pursue more definitive treatment regard to her shoulder at this point given the duration of her pain and response to conservative treatment thus far.Past Medical/Surgical History/Meds/Allergies reviewed and chartedPhysical Exam:afebrile, vital signs stable, in no apparent distress, oriented to person/place/time.Gait symmetric.Skin intact without erythema.Left SHOULDER: [no redness, warmth, deformity]. Range of motion [full in all planes with no stiffness]. Strength [4/5 all muscle groups Of the rotator cuff with mild irritability]. Apprehension [negative]. Impingement sign Positive. Acromioclavicular joint [nontender without irritability with cross body adduction]. Neurovascular Exam [wnl].Right SHOULDER: no redness, warmth, deformity. Range of motion [full in all planes with no stiffness]. Strength [5/5 all muscle groups]. Apprehension [negative]. Impingement sign [negative ]. Acromioclavicular joint [nontender without irritability to cross body adduction]. Neurovascular Exam wnl.New Studies: DeferredImpression: Left shoulder refractory rotator cuff tendinitis versus tearPlan: 1. In regards to her left shoulder this point I would recommend an MRI to further evaluate the integrity of her rotator cuff. I discussed with her should the MRI be positive for care would recommend rotator cuff repair. She did be negative would recommend subacromial decompression distal clavicle excision and follow-up with Dr. Montiel. She understands this. All questions have been answered.[employer] speech recognition feed adviser software was used to create portions of this document. An attempt at proofreading has been made to minimize errors. Please call for corrections. Cain Kitchen PA-C [address], [place], [address], [facility] 06/12/2024 07:45:03 07/13/2024 text/html I am seeing the patient today under the supervision of Dr. Debbie Montiel}} who was available but who did not [...] recommended. The patient will follow up prn. Cain Kitchen PA-C [address] [facility] [address], [place], [address], [facility] 07/20/2024 07:27:57 01/11/2025 text/html I am seeing the patient today under the supervision of Dr. Debbie Montiel}} who was available but who did not [...] recommended. The patient will follow up prn. Cain Kitchen PA-C [address], [place], [address], [facility] 01/11/2025 17:15:58 OBGyn Episode No OBEpisode recorded.
--- OUTSIDE RECORDS SUMMARY | 2025-01-14 20:54 | XMS_ITS | Encounter Summary ---
Author Organization [facility] Address [address] [place] [address] Care Team Providers Care Pairer Name Role Phone Community, Pcp Primary Care Provider Unavailabl e Encounter Details Date Type Department Care Team Description 12/10/2016 SCAN Medical Records [address] [place] [id number] Abstract, Provider Social History Tobacco Use Types Packs/Day Years Used Date Smoking Tobacco: Never Assessed Sex Assigned at Date Recorded Not on file documented as of this encounter Plan of Treatment Not on file documented as of this encounter Procedures Procedure Name Priority Date/Time Associated Diagnosis Comments OUTSIDE PATHOLOGY Routine 11/27/2016 documented in this encounter Results * OUTSIDE PATHOLOGY (11/27/2016) Provider Abstract OUTSIDE LAB documented in this encounter Visit Diagnoses Not on filedocumented in this encounter Care Teams Pairer Relationship Specialty Start Date End Date Community, Pcp PCP - General Internal Medicine 10/19/16 documented as of this encounter
--- OUTSIDE RECORDS SUMMARY | 2025-01-14 20:54 | XMS_ITS | Patient Health Record ---
Author Organization [facility] Address [address] [place] [address] Care Team Providers Care Frog Or Oyster Farmworker Name Role Phone Chino Villatoro Primary Care Provider Manuel Hubbard Unavailable [phone] Allergies Allergen (clinical drug ingredient) Drug/Non Drug [...] Problem Status W/U Status Risk Notes Problem [id number] Encounter for screening for malignant neoplasm of colon (Z12.11) Active confirmed Problem [id number] Ulcerative pancolitis without complication (K51.00) Active confirmed Problem Ulcerative pancolitis (K51.00) Active confirmed Plan Of Treatment Pending Test Test Name Order Date HEPATITIS B PROFILE 11/03/2013 US ABD 04/28/2013 Pathology 04/08/2023 Future Test Test Name Order Date COLONOSCOPY 11/03/2013 COLONOSCOPY 02/06/2017 COLONOSCOPY 01/16/2023 Insurance Providers Payer Name Payer Address Payer Phone Subscriber Number Group Number Insured Name Patient Relationship to Insured Coverage Start Date Coverage End Date [employer] PPO [address] [place] [phone] [id number] ELBA BAURTO Self - patient is the insured Medical (General) History Medical History History ICD Code Ulcerative colitis--since ag e 18-previous colonoscopies have shown evidence of chronic colitis involving the left and right colon Hypothyroidism Colonoscopy in --no active coliti s, no dysplasia Denies [place],DM,CVA,Lung disease,renal dise ase Neg abdominal U/S in 05/2013, except for non-visualization of the spleen(never had surgery) Bronchitis Colon[facility]--no active colitis-no dysplasia, no polyps Depression Colonoscopy June of 2017 was negative for any sign of active colitis nor polyps. Biopsies throughout the colon were negative for dysplasia. Surgical History Surgery Date(Month/Year) Partial Thyroidectomy
[2025-01-14 21:18] VITALS: BP 177/87; PULSE 68; RESP 16; O2SAT 98
[2025-01-14 21:21] LABS: MANUAL DIFF FLAG NO
[2025-01-14 21:30] LABS: Basophils Percent Auto 0.2 % (0-2); Hematocrit 38.1 % (37.0-47.0); Hemoglobin 13.2 g/dl (12.0-16.0); Imm Gran Abs Auto 0.07 X10*3/uL (0.00-0.03); Imm Gran Pct Auto 0.6 % (0.0-0.4); Lymphocytes Absolute Auto 2.3 X10*3/uL (1.2-4.9); Lymphocytes Percent Auto 20.1 % (20-40); Mean Corpuscular HGB Conc 34.6 g/dl (31.0-35.0); Mean Corpuscular Hemoglobin 29.5 pg (27.0-33.0); Mean Corpuscular Volume 85.2 fL (80.0-98.0); Mean Platelet Volume 10.7 fL (9.4-12.3); Monocytes Absolute Auto 0.8 X10*3/uL (0.1-1.2); Monocytes Percent Auto 6.8 % (2-11); Neutrophils Absolute Auto 8.1 x10*3/uL (2.0-8.3); Neutrophils Percent Auto 72.3 % (45-73); Platelet Count 278 X10*3/uL (160-400); Red Blood Count 4.47 X10*6/uL (4.20-5.50); Red Cell Distribution Width 14.6 % (11.0-16.0); White Blood Count 11.2 X10*3/uL (4.8-10.8)
[2025-01-14 21:37] LABS: Alanine Aminotransferase 14 U/L (0-31); Albumin Level 4.6 g/dL (3.5-5.0); Alkaline Phosphatase 51 U/L (39-117); Anion Gap 14 (12-20); Aspartate Amino Transferase 22 U/L (5-31); Bilirubin Total 0.3 mg/dL (0.0-1.0); Blood Urea Nitrogen 29 mg/dL (9-16); Carbon Dioxide 23 mmol/L (22-29); Chloride 108 mmol/L (96-108); Creatinine Clr Calc Pharmacy 46.8; Estimated Glomerular Filt Rate 51; Glucose Random 113 mg/dL (60-115); Potassium 4.5 mmol/L (3.3-5.1); Sodium 140 mmol/L (135-145); Total Protein 7.7 g/dL (6.5-8.0)
[2025-01-14 21:45] VITALS: BP 188/89; PULSE 67; RESP 16
[2025-01-14] MEDS: ondansetron HCL 4 MG/2 ML VIAL IVPUSH (21:48)
[2025-01-14] MEDS: Acetaminophen 1,000 MG/100 ML PIGGYBACK 400 MG IV (21:48)
[2025-01-14] MEDS: iohexoL 350 MG/ML 100 ML INFUS..BTL 75 ML IV (22:08)
[2025-01-14 23:40] VITALS: BP 149/74; PULSE 61; RESP 16; TEMP 36.8; O2SAT 98
[2025-01-14 23:41] VITALS: BP 149/74; PULSE 61; RESP 16; TEMP 36.8; O2SAT 98
== END 2025-01-14 23:41 | disposition home or self-care (01) ==
PROVIDERS: Registered Nurse Emergency; Emergency Provider Emergency Medicine; PCP Family Medicine
DX: G44.209 Tension-type headache, unspecified, not intractable (principal); I10 Essential (primary) hypertension; R29.700 NIHSS score 0; R11.2 Nausea with vomiting, unspecified; Z87.891 Personal history of nicotine dependence; E78.5 Hyperlipidemia, unspecified; E03.9 Hypothyroidism, unspecified; Z79.02 Long term (current) use of antithrombotics/antiplatelets; Z79.899 Other long term (current) drug therapy
CPT/HCPCS: 36415; 70450; 70496; 70498; 80053; 85025; 93005; 96374; 96375; 99284; 99285; J0131; J2405; Q9967

== ENCOUNTER → 2025-01-14 20:32 | Outpatient (BNV) | payer OTHER, SELFPAY | PROVIDERS: Emergency Provider Emergency Medicine; PCP Family Medicine; Visit Provider Internal Medicine | DX: R94.31 Abnormal electrocardiogram [ECG] [EKG] (principal); R53.1 Weakness | CPT/HCPCS: 93010 ==

== ENCOUNTER → 2025-01-14 20:32 | Outpatient (BNV) | payer OTHER, SELFPAY | PROVIDERS: Emergency Provider Emergency Medicine; PCP Family Medicine; Visit Provider Radiology Diagnostic Radiology | DX: I10 Essential (primary) hypertension (principal); R51.9 Headache, unspecified | CPT/HCPCS: 70450 ==

== ENCOUNTER 2025-02-03 09:00 | Outpatient (REF) | payer OTHER, SELFPAY ==
--- OUTSIDE RECORDS SUMMARY | 2025-02-03 09:27 | XMS_ITS | Clinical Summary ---
Author Organization [facility] Address [address] [place] [address] Care Team Providers Care Sole Layer Name Role Phone Chino Villatoro MD Primary Care Provider [phone] Allergies Active Allergy Reactions Criticality Noted Date [...] of 2) 01/25/2010 Influenza Vaccine (#1) 2024 Fall Risk Assessment 01/25/2025 Osteoporosis Screening (DEXA Scan) 01/25/2025 Pneumococcal Vaccine (1 of 1 - PCV) [...] age to complete this topic Care Teams Sole Layer Relationship Specialty Start Date End Date Chino Villatoro MD [address] [place] [address] PCP - General Family Medicine 07/28/21
[2025-02-03 11:05] LABS: Alanine Aminotransferase 16 U/L (0-31); Albumin Level 4.6 g/dL (3.5-5.0); Alkaline Phosphatase 44 U/L (39-117); Anion Gap 11 (12-20); Aspartate Amino Transferase 22 U/L (5-31); Bilirubin Total 0.9 mg/dL (0.0-1.0); Blood Urea Nitrogen 19 mg/dL (9-16); Calcium 9.8 mg/dL (8.4-10.2); Carbon Dioxide 25 mmol/L (22-29); Chloride 109 mmol/L (96-108); Cholesterol 216 mg/dL (<200); Estimated Glomerular Filt Rate > 60; Glucose Fasting 90 mg/dL (60-99); HDL Cholesterol 74 mg/dL (>40); LDL Cholesterol Calculated 131 mg/dL (<100); Potassium 4.5 mmol/L (3.3-5.1); Sodium 140 mmol/L (135-145); Total Protein 7.2 g/dL (6.5-8.0); Triglycerides 56 mg/dL (<150)
[2025-02-03 11:11] LABS: Free T4 (Free Thyroxine) 0.91 ng/dL (0.71-1.85); Thyroid Stimulating Hormone 5.51 uIU/mL (0.32-4.0)
[2025-02-04 03:43] LABS: Triiodothyronine T3 Total 63 ng/dL (76-181)
== END 2025-02-03 09:01 | disposition home or self-care (01) ==
LOC: HO.HMGCLDS 09:00
PROVIDERS: PCP Family Medicine; Visit Provider Family Medicine
DX: Z00.00 Encounter for general adult medical examination without abnormal findings (principal); E78.5 Hyperlipidemia, unspecified; E03.9 Hypothyroidism, unspecified
CPT/HCPCS: 36415; 80053; 80061; 84439; 84443; 84480

== ENCOUNTER 2025-02-09 14:17 | Outpatient (AMB) | payer OTHER, SELFPAY ==
--- NOTE | 2025-02-09 14:29 | MHC.PC.OV ---
Vital Signs 02/09/25 14:32 Height 5 ft Weight 160 lb 6 oz BMI 31.3 BP 110/80 Blood Pressure Location Lt brachial Position Sitting Respiration 14 Pulse 75 Pulse Source Pulse Oximeter Temp 98.2 F Temp Source Oral Pulse Oximetry (%) 98 Oxygen Delivery Method Room Air Intake Visit Reasons: Follow up/ lab work Intake Note: Patient is here for lab review but was recently seen in the ed would also like to discuss that she was seen at [facility]. Graphic Editor Required: No Allergies Penicillins [PENICILLINS] Allergy (Unknown, Verified 02/09/25 14:31) RASH Medication List - Last Reconciled 02/09/25 by Chino Villatoro MD escitalopram oxalate 20 mg PO DAILY 90 days levothyroxine 125 mcg PO DAILY 90 days losartan 25 mg PO DAILY 90 days Tobacco use date assessed: 10/25/23 HPI Follow up/ lab work HPI Details 65 y/o female presents to f/u labs, hypertension. Blood pressure today 110/80, 75p. She is on amlodipine 5mg daily. Labs drawn 02/03/25. Reviewed labs with pt. Triglycerides 56. TC 216. LDL 131. HDL 74. She is not on artovastatin. TSH 5.51. Total T3 63. Pt notes recent ED visit for headache. BP had been elevated and was prescribed amlodipine 5mg daily. 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 Cognitive needs: No Hearing needs: No Vision needs: No Questionnaire Thrive Questionnaire Date Thrive assessed: 11/13/24 I am a: Patient What is your living situation today?: I have a steady place to live Within the past 12 months, did the food you bought not last and you didn't have the money to get more?: Never true Within the past 12 months, did you worry whether your food would run out before you got money to buy more?: Never true Do you have trouble paying for medicines?: No Do you have trouble getting transportation to medical appointments?: No Do you have trouble paying your heating and electricity bill?: No Do you have trouble taking care of your child, family member or friend?: No Do you have trouble with day-to-day activities such as bathing, preparing meals, shopping, managing finances, etc.?: No Are you currently unemployed and looking for a job?: No Are you interested in more education?: No Please select the resources that you would like help with: None Currently or been in a relationship where the following occur: No concerns reported THRIVE Score: 0 AUDIT C Alcohol Use Questionnaire (AUDIT-C) 1. How often do you have a drink containing alcohol?: Never Total Score: 0 PATSY-7 AMB Questionnaire PATSY-7 Feeling nervous, anxious, or on edge: 0 = Not at all Not being able to stop or control worryin = Not at all Worrying too much about different things: 0 = Not at all Trouble relaxin = Not at all Being so restless that it is hard to sit still: 0 = Not at all Becoming easily annoyed or irritable: 0 = Not at all Feeling afraid as if something awful might happen: 0 = Not at all Total PATSY-7 score (0-4 normal; 5-9 mild; 10-14 moderate; 15-21 severe): 0 Source: Developed by Drs. Manuel Castorena, Stephanie Joseph, Marco A Camejo and colleagues, with an educational emma from [employer]. Physical exam (Primary Care) Vital Signs: Last Vital Signs Temp 98.2 F 02/09/25 14:32 Pulse 75 02/09/25 14:32 Resp 14 02/09/25 14:32 BP 110/80 02/09/25 14:32 Pulse Ox 98 02/09/25 14:32 Oxygen Delivery Method Room Air 02/09/25 14:32 BMI result Body Mass Index 31.3 Tobacco/Smoking Status: Tobacco use Status Tobacco use date assessed 10/25/23 02/09/25 14:30 Patient Tobacco Use Status Former Tobacco user 02/09/25 14:30 e-Cigarette/Vaping Use Never Used 02/09/25 14:30 Thrive Assessment: Date of Thrive Assessment Date Thrive assessed 11/13/24 02/09/25 14:30 Currently or been in a relationship where the following occur: No concerns reported Coding Level of Care Code Est Pt Level 4 (49011) Diagnoses Hypertension I10 Hyperlipidemia E78.5 Hypothyroidism E03.9 Headache R51.9 Assessment & Plan Assessment & Plan (1) Hypertension: Code(s): I10 - Essential (primary) hypertension Category: Medical Plan: Blood?pressure?today?appears?controlled.??Goal?is?less?than?140/90 However,?patient?brings?in?a?log?which?shows?that?her?blood?pressures?are?frequently?in?hypertensive?range?and?otherwise?in?prehypertensive?range. Recent?visit?to?the?emergency?department?with?systolic?blood?pressure?up?to?185?and?headaches. CT?angio?and?head?CT?were?negative?for?intracranial?pathology. She?was?discharged?with?amlodipine.??She?tried?this?medication?but?she?said?it?was?making?her?dizzy?so?she?discontinued?it. Will?give?her?a?script?for?losartan Call?or?return?to?office?if?having?in?problems with it (2) Hyperlipidemia: Code(s): E78.5 - Hyperlipidemia, unspecified Category: Medical Plan: LDL?cholesterol?is?high.??HDL is?high Atorvastatin?40?mg?daily?was?on?her?med?list?but?she?says?she?is?not?taking?this?and?has. Will?have?him?work?on?a?diet?low?in?saturated?fats?and?cholesterol Will?repeat?lipids?in?3?months?and?review?with?patient (3) Hypothyroidism: Code(s): E03.9 - Hypothyroidism, unspecified Category: Medical Plan: She?is?on?levothyroxine?managed?by? TSH?is?elevated?and?T3?mildly?low. 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 No?medication?changes?made?today (4) Headache: Code(s): R51.9 - Headache, unspecified Category: Medical Plan: Patient?had?gone?to?the?emergency?department?with?a?headache As?above,?imaging?was?normal Unclear?if?this?was?a?headache?due?to?hypertension?or?stress Nevertheless,?will?control?blood?pressure?encouraged?relaxation She?will?let?me?know?if?these?recur Orders: Orders Free T4 (Free Thyroxine) Today E03.9 - Hypothyroidism, unspecified Triiodothyronine T3 Total Today E03.9 - Hypothyroidism, unspecified Thyroid Stimulating Hormone Today E03.9 - Hypothyroidism, unspecified Lipid Panel Today E78.5 - Hyperlipidemia, unspecified, Z00.00 - Encounter for general adult medical examination without abnormal findings Comprehensive Gervais. Panel Fast Today E78.5 - Hyperlipidemia, unspecified, Z00.00 - Encounter for general adult medical examination without abnormal findings Medications: New losartan 25 mg PO DAILY 90 tabs 3RF 90 days Discontinued amlodipine Discontinued Reason: Duplicate 5 mg PO DAILY 30 tabs 2RF atorvastatin Discontinued Reason: Doctor's Order 40 mg PO BEDTIME 90 days 90 tabs 2RF
[2025-02-09 14:32] VITALS: BP 110/80; PULSE 75; RESP 14; TEMP 36.8; O2SAT 98; BMI 31.3
--- OUTSIDE RECORDS SUMMARY | 2025-02-09 16:07 | XMS_ITS | Clinical Summary ---
Author Organization [facility] Address [address] [place] [id number] Care Team Providers Care Body Designer Name Role Phone Chino Villatoro MD Primary Care Provider [phone] Allergies Active Allergy Reactions Criticality Noted Date [...] 01/25/2010 Shingrix-Zoster Vaccine (1 of 2) 01/25/2010 Fall Risk Assessment 01/25/2025 Osteoporosis Screening (DEXA Scan) 01/25/2025 Pneumococcal Vaccine (1 of 1 - PCV) 01/25/2025 Influenza Vaccine (Season Ended) 2025 RSV Adult > 60+ Yrs or Pregn [...] age to complete this topic Care Teams Body Designer Relationship Specialty Start Date End Date Chino Villatoro MD [address] [place] [id number] PCP - General Family Medicine 07/28/21
== END 2025-02-09 15:06 | disposition home or self-care (01) ==
LOC: HO.HMCFM 14:18
PROVIDERS: PCP Family Medicine; Visit Provider Family Medicine
DX: I10 Essential (primary) hypertension (principal); E78.5 Hyperlipidemia, unspecified; E03.9 Hypothyroidism, unspecified; R51.9 Headache, unspecified

== ENCOUNTER → 2025-02-09 14:17 | Outpatient (BNVA) | payer OTHER, SELFPAY | PROVIDERS: PCP Family Medicine; Visit Provider Family Medicine | DX: Z13.89 Encounter for screening for other disorder (principal) ==

== ENCOUNTER 2025-05-14 09:57 | Outpatient (AMB) | payer MEDICARE, SELFPAY ==
--- NOTE | 2025-05-14 10:44 | MHC.PC.OV ---
Vital Signs 05/14/25 11:05 Height 5 ft Weight 155 lb 8 oz BMI 30.4 BP 118/90 H Blood Pressure Location Rt brachial Position Sitting Respiration 15 Pulse 68 Pulse Source Pulse Oximeter Temp 97.8 F Temp Source Temporal Artery Scan Pulse Oximetry (%) 98 Oxygen Delivery Method Room Air Intake Visit Reasons: f/u HLD Intake Note: Alicia presents in the office today for a follow up to her cholesterol. Patient is not taking her BP medication consistently. Would like to discuss escitalopram. Allergies Penicillins (PENICILLINS) Allergy (Unknown, Verified 05/14/25 11:03) RASH Medication List - Last Reconciled 05/14/25 by Chino Villatoro MD escitalopram oxalate 20 mg PO DAILY 90 days levothyroxine 125 mcg PO DAILY 90 days metoprolol succinate ER 25 mg PO DAILY 90 days Tobacco use date assessed: 05/14/25 Dental Screening Dental Screen Date: 05/14/25 Did you have a dental visit in the last 12 months?: Yes Did you have a dental problem in the last 6 months where you did not have access to dental care?: No Was dental information given to patient?: Patient has dentist HPI f/u HLD HPI Details 65 y/o female presents to f/u HLD, HTN, hypothyroidism. Thyroid meds managed by [facility]. Started her on losartan last office visit. BP today 118/90, 68p. Pt reports she has not been tolerating losartan. Labs drawn 02/03/25. LDL 131. Triglycerides 56. TC 216. LDL 74. TSH 5.51 uIU/mL. Total T3 low at 63. 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[employer] Cognitive needs: No Hearing needs: No Vision needs: No Questionnaire Thrive Questionnaire Date Thrive assessed: 11/13/24 I am a: Patient What is your living situation today?: I have a steady place to live Within the past 12 months, did the food you bought not last and you didn't have the money to get more?: Never true Within the past 12 months, did you worry whether your food would run out before you got money to buy more?: Never true Do you have trouble paying for medicines?: No Do you have trouble getting transportation to medical appointments?: No Do you have trouble paying your heating and electricity bill?: No Do you have trouble taking care of your child, family member or friend?: No Do you have trouble with day-to-day activities such as bathing, preparing meals, shopping, managing finances, etc.?: No Are you currently unemployed and looking for a job?: No Are you interested in more education?: No Please select the resources that you would like help with: None Currently or been in a relationship where the following occur: No concerns reported THRIVE Score: 0 Review of Systems Const Denies chills, Denies fatigue, Denies fever(s), Denies headache(s) and Denies weakness ENT Denies dizziness and Denies headache(s) Card Denies dyspnea Resp Denies cough, Denies dyspnea, Denies wheezing and Denies other (shortness of breath) Musc Denies numbness and Denies tingling Neuro Denies dizziness, Denies headache(s), Denies numbness, Denies tingling and Denies weakness Psych Denies anxiety and Denies depression Endo Denies fatigue Aller/Immun Denies wheezing Physical exam (Primary Care) Vital Signs: Last Vital Signs Temp 97.8 F 05/14/25 11:05 Pulse 68 05/14/25 11:05 Resp 15 05/14/25 11:05 BP 118/90 H 05/14/25 11:05 Pulse Ox 98 05/14/25 11:05 Oxygen Delivery Method Room Air 05/14/25 11:05 BMI result Body Mass Index 30.4 Tobacco/Smoking Status: Tobacco use Status Tobacco use date assessed 05/14/25 05/14/25 11:10 Patient Tobacco Use Status Former Tobacco user 05/14/25 11:05 e-Cigarette/Vaping Use Never Used 09/05/25 11:05 Thrive Assessment: Date of Thrive Assessment Date Thrive assessed 11/13/24 05/14/25 10:45 Currently or been in a relationship where the following occur: No concerns reported Const General: well developed; No acute distress Nutritional Appearance: well nourished Orientation/consciousness: patient oriented x3 HENMT Head: Yes normocephalic and Yes atraumatic Eyes General: appearance normal, both eyes and all related structures Pupils: Equal, round and reactive pupils present EOM: EOMs intact bilaterally Resp Effort & Inspection: normal respiratory effort Neuro General: patient oriented x3 and gait normal Cranial nerves: Yes Equal, round and reactive pupils present Psych Affect: normal affect Coding Level of Care Code Est Pt Level 4 (81072) Diagnoses Hypertension I10 Hypothyroidism E03.9 Hyperlipidemia E78.5 Anxiety with depression F41.8 Irritability R45.4 Assessment & Plan Assessment & Plan (1) Hypertension: Code(s): I10 - Essential (primary) hypertension Category: Medical Plan: Diastolic blood pressure is above goal She says that she has not been taking the losartan every day because it is causing her to feel like she has had too much coffee She also notes significant irritability-see below Will try metoprolol ER 25 mg daily (2) Hypothyroidism: Code(s): E03.9 - Hypothyroidism, unspecified Category: Medical Plan: TSH is too high She is followed by Dr. Godinez Patient says that her medication was recently adjusted. Follow-up with Dr. Godinez as recommended (3) Hyperlipidemia: Code(s): E78.5 - Hyperlipidemia, unspecified Category: Medical Plan: LDL cholesterol is due to high although she continues to improve on this Not currently exercising She will work on a diet low in saturated fats and cholesterol and begin exercise We discussed that if LDL cholesterol is still high at her next visit we should consider medication. We discussed Zetia today. (4) Anxiety with depression: Code(s): F41.8 - Other specified anxiety disorders Category: Medical (5) Irritability: Code(s): R45.4 - Irritability and anger Category: Medical Plan Patient notes increased irritability. It he has been taking escitalopram for anxiety/depression irritability but had been off it for a while. She has resume this in the last couple of weeks. Advised her to continue the escitalopram. Metoprolol may also help with irritability. If she is still having problems with this we can discuss adjuvant medications or changing her escitalopram. We can also discuss therapy. Orders: Orders Basic Metabolic Panel Fasting Today E78.5 - Hyperlipidemia, unspecified Lipid Panel Today E78.5 - Hyperlipidemia, unspecified, Z00.00 - Encounter for general adult medical examination without abnormal findings Medications: New metoprolol succinate ER 25 mg PO DAILY 90 tabs 3RF 90 days Discontinued losartan Discontinued Reason: Doctor's Order 25 mg PO DAILY 90 days 90 tabs 3RF
--- OUTSIDE RECORDS SUMMARY | 2025-05-14 10:44 | XMS_ITS | Continuity of Care Document ---
Author Organization [facility] [address] [facility] [address] [place] [address] Phone [phone] Care Team Providers Care Senior Fund Accountant Name Role Phone Chino Villatoro MD Care Team Information Air Commodore [phone] Problems Active Problems Provider Date Follicular thyroid carcinoma Dima Godinez M.D. Onset: 10/19/2022 Social History Type Date Description Comments Sex Female Sex Unknown Lives With Spouse ETOH Use Denies alcohol use Tobacco Use Start: Unknown End: Unknown Patient is a former smoker Allergies and adverse reactions Active Allergies Criticality Reaction Severity Comments Date Penicillin Unable to assess criticality 10/19/2022 Medications Active Medications SIG Qnty Indications Order ing Provider Date Levothyroxine [id number] Tablets Take One Tablet By Mouth 6 Days Per Week 90tabs Dima Godinez M.D. [...] TSH Rfx on Abnormal to Free T4 04/07/2025 [facility] TSH Rfx on Abnormal to Free T4 2.250 uIU/mL 0.450-4.5 00 TSH Rfx on Abnormal to Free T4 [...] 1 TSH With Reflex To FT4 10/25/2023 [facility] TSH With Reflex To FT4 <pending> TSH With Reflex To FT4 10/22/2023 [facility] TSH With Reflex To FT4 0.10 uIU/mL Low (0.4-4.2) Free T4 10/22/2023 [facility] Free T4 1.43 ng/dL (0.70-1.8 0) TSH With Reflex To FT4 10/19/2022 [facility] TSH With Reflex [...] Date Location Provider Dx Diagnosis Office Visit 12/23/2024 2:45p Main Office Dima Godinez M.D. E03.9 Hypothyroidism, unspecified C73 Malignant neoplasm o f thyroid gland Assessments Date Code Description Provider 12/23/2024 E03.9 Hypothyroidism Dima yarbrough M.D. 12/23/2024 C73 Malignant neoplasm of thyroi d gland Dima Godinez M.D. Plan of Treatment Future Appointment(s):* 12/23/2025 8:30 am - Dima Godinez M.D. at Main Office 10/19/2022 - Dima Vanderleeden, M.D.* C73 Follicular thyroid carcinoma * E03.9 Hypothyroidism * E04.1 Nontoxic single thyroid nodule Functional Status Description No Information Available Mental Status Description No Information Available Referrals Description No Information Available
--- OUTSIDE RECORDS SUMMARY | 2025-05-14 10:44 | XMS_ITS | Clinical Summary ---
Author Organization [facility] Address [address] [place] [address] Care Team Providers Care Annealing Furnace Tender Name Role Phone Chino Villatoro MD Primary Care Provider [phone] Allergies Active Allergy Reactions Criticality Noted Date [...] of 1 - PCV) 01/25/2025 Influenza Vaccine (#1) 2025 RSV Adult > 60+ Yrs or [...] age to complete this topic Care Teams Annealing Furnace Tender Relationship Specialty Start Date End Date Chino Villatoro MD [address] [place] [id number] PCP - General Family Medicine 07/28/21
--- OUTSIDE RECORDS SUMMARY | 2025-05-14 10:44 | XMS_ITS ---
Author Name [facility] Organization Unknown Care Team Organization Name Specialty Phone Email Start Date End Da te [facility] DILLAN ALBRECHT Primary Care 08/09/2022 04/27/2024
--- OUTSIDE RECORDS SUMMARY | 2025-05-14 10:45 | XMS_ITS | Patient Health Record ---
Author Organization [facility] Address [address] [place] [address] Care Team Providers Care Warehouse General Laborer Name Role Phone Chino Villatoro Primary Care Provider Manuel Hubbard Unavailable [phone] Allergies Allergen (clinical drug ingredient) Drug/Non Drug [...] Problem Status W/U Status Risk Notes Problem [id number] Encounter for screening for malignant neoplasm of colon (Z12.11) Active confirmed Problem [id number] Ulcerative pancolitis without complication (K51.00) Active confirmed Problem Ulcerative pancolitis (508880791) Ulcerative pancolitis (K51.00) Active confirmed Plan Of Treatment Pending Test Test Name Order Date HEPATITIS B PROFILE 11/03/2013 US ABD 04/28/2013 Future Test Test Name Order Date COLONOSCOPY 11/03/2013 COLONOSCOPY 02/06/2017 COLONOSCOPY 01/16/2023 Insurance Providers Payer Name Payer Address Payer Phone Subscriber Number Group Number Insured Name Patient Relationship to Insured Coverage Start Date Coverage End Date [employer] PPO [address] [place] [phone] [id number] ELBA ABURTO Self - patient is the insured Medical (General) History Medical History History ICD Code Ulcerative colitis--since ag e 18-previous colonoscopies have shown evidence of chronic colitis involving the left and right colon Hypothyroidism Colonoscopy in --no active coliti s, no dysplasia Denies NV,DM,CVA,Lung disease,renal dise ase Neg abdominal U/S in [...]
[2025-05-14 11:05] VITALS: BP 118/90; PULSE 68; RESP 15; TEMP 36.6; O2SAT 98; BMI 30.4
== END 2025-05-14 11:44 | disposition home or self-care (01) ==
LOC: HO.HMCFM 09:58
PROVIDERS: PCP Family Medicine; Visit Provider Family Medicine
DX: I10 Essential (primary) hypertension (principal); E03.9 Hypothyroidism, unspecified; E78.5 Hyperlipidemia, unspecified; F41.8 Other specified anxiety disorders; R45.4 Irritability and anger

== ENCOUNTER → 2025-05-14 09:57 | Outpatient (BNVA) | payer MEDICARE, SELFPAY | PROVIDERS: PCP Family Medicine; Visit Provider Family Medicine | DX: I10 Essential (primary) hypertension (principal); E03.9 Hypothyroidism, unspecified; E78.5 Hyperlipidemia, unspecified; F41.8 Other specified anxiety disorders; R45.4 Irritability and anger | CPT/HCPCS: 99212 ==

== ENCOUNTER 2025-08-10 08:22 | Outpatient (REF) | payer MEDICARE, SELFPAY ==
--- OUTSIDE RECORDS SUMMARY | 2025-08-10 08:27 | XMS_ITS | Continuity of Care Document ---
Author Organization [facility] [address] [facility] [address] [place] [address] Phone [phone] Care Team Providers Care Brick Molder Hand Name Role Phone Chino Villatoro MD Care Team Information Sales Agent Casualty Insurance [phone] Problems Active Problems Provider Date Follicular thyroid [...] Qnty Indications Order ing Provider Date Levothyroxine [id number] Tablets Take One Tablet By Mouth 6 [...] 1 TSH With Reflex To FT4 10/25/2023 [facility] TSH With Reflex To FT4 <pending> TSH With Reflex To FT4 10/22/2023 [facility] TSH With Reflex To FT4 0.10 uIU/mL Low (0.4-4.2) Free T4 10/22/2023 [facility] Free T4 1.43 ng/dL (0.70-1.8 0) TSH With Reflex To FT4 10/19/2022 [facility] TSH With Reflex [...] C73 Malignant neoplasm of thyroi d gland Dmia Godinez M.D. Plan of Treatment Future Appointment(s):* 12/23/2025 8:30 am - Dima Godinez M.D. at Main Office 10/19/2022 - Dima Vanderleeden, M.D.* C73 Follicular thyroid carcinoma * E03.9 Hypothyroidism * E04.1 Nontoxic single thyroid nodule Functional Status Description No Information Available Mental Status Description No Information Available Referrals Description No Information Available
--- OUTSIDE RECORDS SUMMARY | 2025-08-10 08:27 | XMS_ITS | Data Portability ---
Author Organization [facility] Chuy Joel Menico [facility], [facility] Address [address] [place] [address] Care Team Providers Care Account Administrator Name Role Phone DILLAN ALBRECHT Primary Care Provider [phone] Assessment No assessment recorded. Plan of Treatment Reminders Order Date Submit Date Provider Last Modified By Organization Details Last Modified Time Details Appointments RECHECK 15 2025 08:30A M Cain Kitchen PA-C Not available Not available Not available Lab None recorded. Referral None recorded. Procedures None recorded. Surgeries None recorded. Imaging MRI, shoulder, w/o contrast - r/o RCT 2023 024 [id number] [facility] ([facility] [address] [facility] [facility] [facility], [place], [address], 07/06/2024 11:40:13 Medication Orders None recorded. Patient TargetsNo targets recorded. Patient InstructionsNo instructions recorded. Reason for Referral None Reported. Results Created Date Observation Date Name Description Value Unit Range Abnormal Flag Note LastModifiedBy Organization Detail LastModifiedTime 06/23/20 24 06/21/2024 MRI, samantha maria ines, w/o contr ast [facility] Access ion Number : [id number] Patitripp t Name: Alicia So Record Number : [id number] Date of : 1959 Date of Exam: 2023 Referr ing Physic bethany: Cain [facility] [address], [address] [place] [address] Exam: MR Should er (C-) CPT 98017 - Left Room Descri ption: [place] GE Pion 3T Should er MRI left [...] onical ly Signed By: Paula davis 1 [facility] ([facility]) [address], [place], [address], 06/25/2024 14:31:54 Result Notes Documentation Provider Name and Address Organization Details Recorded Time Mri, Shoulder, W/o Contrast : [facility] Accession Number: [id number] Patient Name: Alicia Jaimes Date of : 1960 Date of Exam: 06-21-2024 Referring Physician: Cain Kitchen [facility] ([facility]) [address], [address] [place] [address] Exam: MR Shoulder (C-) CPT 27092 - Left Room Description: [place] GE Pion 3T Shoulder MRI left Clinical History: Pain Findings: Mild acromioclavicular osteoarthritis. Supraspinatus and infraspinatus tendinopathy. Superimposed small low-grade partial articular surface tear within watershed fibers of the supraspinatus tendon. The teres minor tendon is intact . The subscapularis tendon is intact . The long head of the biceps tendon is intact . Marked thinning and irregularity within superior glenohumeral cartilage. 1.5 x 1 x 1.5 cm focus of intermediate T2 signal in the subcoracoid recess Impression: Supraspinatus and infraspinatus tendinopathy.Superimposed small, low-grade partial supraspinatus tear. 1.5 cm focus of intermediate signal within the subcoracoid recess may be an area of focal synovitis. Mild acromioclavicular osteoarthritis. Glenohumeral chondromalacia is outlined above. Electronically Signed By: Deshawn Cutler [facility] 06/25/2024 14:31:54 Procedures Surgical History Date Name Laterality Status Provider Name and Address Organization Details Recorded Time 5 Sports Shoulder 4&1 completed Cain Kitchen PA-C [address], [place], [address], [facility] 07/21/2025 07:24:00 5 Sports Shoulder 4&1 completed Cain Kitchen PA-C [address], [place], [address], [facility] 05/05/2025 07:41:29 5 Sports Shoulder 4&1 completed Cain Kitchen PA-C [address], [place], [address], [facility] 01/11/2025 17:15:32 4 Sports Shoulder 4&1 completed Cain Kitchen PA-C [address], [place], [address], [facility] 07/20/2024 07:27:37 4 Sports Shoulder 4&1 completed Cain Kitchen PA-C [address], [place], [address], [facility] 04/17/2024 08:48:53 Other completed BRYN HAGAN [facility] 01/11/2025 14:28:22 Imaging Results None recorded. Procedure Notes None recorded. Medical Equipment None Reported. Allergies Allergen ID Allergen Name Allergen Category Reaction Reaction Severity Criticality Documentation Date Start Date Code Code System Note Provider Name and Address Organization Details Recorded Time 13135 penicilli n G benzathin e medicatio n Not available Not available Not available 11/11/20232017 7982 RxNorm Not Available [facility] 11:39:18 Medications Name Sig Start Date Stop Date Status Note LastModified by Organization Details LastModified Time atorvastati n 40 mg tablet TAKE ONE TABLET BY MOUTH AT BEDTIME 01/05 completed Not Available Not Available Not Available amlodipine 5 mg tablet TAKE ONE TABLET BY MOUTH EVERY DAY 07/21 completed Not Available Not Available Not Available IBU 600 mg tablet TAKE ONE TABLET BY MOUTH EVERY 6 HOURS FOR 7 DAYS 01/05 completed Not Available Not Available Not Available levothyroxi ne 125 mcg tablet TAKE 1 TABLET BY MOUTH 6 DAUS A WEEK DIRECTED active Not Available Not Available No t Available losartan 25 mg tablet TAKE ONE TABLET BY MOUTH EVERY DAY 07/21 completed Not Available Not Available Not Available metoprolol succinate ER 25 mg tablet,exte nded release 24 hr TAKE ONE TABLET BY MOUTH EVERY DAY active Not Available Not Available No t Available escitalopra m 20 mg tablet TAKE ONE TABLET BY MOUTH EVERY DAY active Not Available Not Available No t Available Premarin 0.625 mg/gram vaginal cream INSERT 0.5 GRAMS VAGINALLY TWICE A WEEK active Not Available Not Available No t Available [facility] Levothyroxi ne Sodium 01/05 completed Not Available Not Available Not Available Vitals Date Recorded Body height Provider Name an d Address Organization Details Last Updated DateTime 01/11/2025 152.4 cm BRYN DANYA [facility] 01/11/2025 14:28:25 Date Recorded Body height Provider Name an d Address Organization Details Last Updated DateTime 05/05/2025 152.4 cm BRYN DANYA [facility] 05/05/2025 08:22:50 Date Recorded Body height Body mass index (BMI) Body weight Provider Name and Address Organization Details Last Updated DateTime 07/13/2024 152.4 cm 31.2 kg/m2 79723.78 g BRYN HAGAN [facility] 07/13/2024 10:28:01 Date Recorded Body height Provider Name an d Address Organization Details Last Updated DateTime 07/21/2025 152.4 cm BRYN HAGAN [facility] 07/21/2025 08:35:51 Social History None recorded. Functional Status None recorded. Mental Status None recorded. Family History Nothing Reported. Medical History Condition Response Thyroid Problems Y Gynecological HistoryNo gynecological history recorded. Obstetrics History GPAL:G 0 P 0 0 0 0 Past Encounters Encounter ID Performer Location Encounter Start Date Encounter Closed Date Diagnosis/Indication Diagnosis SNOMED-CT Code Diagnosis ICD10 Code Diagnosis IMO Codes Diagnosis Note [id number] Cain Kitchen PA-C [facility] [address] [place] [address] 04/17/2024 08:35:06 04/17/2024 10:00:53 Pain of left shoulder joint 8800641121 [id number] M25.781 [id number] Cain Kitchen PA-C [facility] [address] [place] [address] 06/11/2024 14:00:11 07/06/2024 11:40:13 Pain of left shoulder joint 8125509362 [id number] M25.340 [id number] [facility] [address] [place] [address] 07/13/2024 10:16:27 08/05/2024 11:59:20 Impingement syndrome of left shoulder region 3425074569 76150 M75.42 [id number] [facility] [address] [place] [address] 01/11/2025 14:23:12 01/18/2025 13:05:26 Impingement syndrome of left shoulder region 4212634839 76969 M75.42 [id number] [facility] [address] [place] [address] 05/05/2025 08:20:15 05/17/2025 14:03:51 Impingement syndrome of left shoulder region 1522622596 56202 M75.[id number] [place] [address] 07/21/2025 08:30:50 08/02/2025 10:42:06 Inflammation of joint of left shoulder region 5572129563 76457 M19.012 [id number] Health Concerns Section Related Observation LastModified by Organization Detai ls LastModified Time None Recorded Concern Status LastModified by Organization Details LastModified Time None Recorded Advance Directives Directive None Recorded Payers Insurance Date Sequence Insurance Name Policy Number Policy Hinds Covered Member ID Hinds Member ID Guarantor Name 08/02/2025 2 [place] [id number] Alicia Jaimes [id number] Alicia Jaimes 07/21/2025 1 MED[place] [facility] [employer] Alicia Ngo [id number] Alicia Jaimes 07/21/2025 1 CIG[employer] [id number] Alicia Jaimes [id number] Alicia Jaimes Notes Date Note Type Note Provider Name and Address Organization Details Recorded Time 06/11/2024 text/html Dx: Left shoulder rotator cuff tendinitis versus tearInterval History: Pleasant [...] She understands this. All questions have been answered.TestSoup speech recognition coal deliverer software was used to create portions of this document. An attempt at proofreading has been made to minimize errors. Please call for corrections. Cain Kitchen PA-C [address] [facility] [address] [facility], [place], [address], [facility] 06/12/2024 07:45:03 07/13/2024 text/html I am seeing the patient today under the supervision of Dr. Vargas who was available but who did not see the patient. Reason For Visit Patient comes to the office with know rotator cuff tendonitis. The patient has done well with conservative management for their Left shoulder pain. Has had increasing discomfort over [...] limits. Assessment Rotator cuff tendonitis of the Left shoulder. plan The patient has done well [...] follow up prn. Cain Kitchen PA-C [address], [place], [address], [facility] 07/20/2024 07:27:57 01/11/2025 text/html I am seeing the patient today under the supervision of Dr. Vargas who was available but who did not see the patient. Reason For Visit Patient comes to the office with know rotator cuff tendonitis. The patient has done well with conservative management for their Left shoulder pain. Has had increasing discomfort over [...] limits. Assessment Rotator cuff tendonitis of the Left shoulder. plan The patient has done well [...] follow up prn. Cain Kitchen PA-C [address], [place], [address], [facility] 01/11/2025 17:15:58 05/05/2025 text/html I am seeing the patient today under the supervision of Dr. Vargas who was available but who did not see the patient. Reason For Visit Patient comes to the office with know rotator cuff tendonitis. The patient has done well with conservative management for their Left shoulder pain. Has had increasing discomfort over [...] limits. Assessment Rotator cuff tendonitis of the Left shoulder. plan The patient has done well [...] will follow up prn. Cain Kitchen PA-C [address] [place] [address] [address], [place], [address], [facility] 05/05/2025 12:08:41 07/21/2025 text/html I am seeing the patient today under the supervision of Dr. Vargas who was available but who did not see the patient. Reason For Visit Patient comes to the office with know rotator cuff tendonitis. The patient has done well with conservative management for their Left shoulder pain. Has had increasing discomfort over [...] limits. Assessment Rotator cuff tendonitis of the Left shoulder. plan The patient has done well [...] follow up prn. Cain Kitchen PA-C [address] [facility] [address], [place], [address], [facility] 07/21/2025 12:00:53 OBGyn Episode No OBEpisode recorded.
--- OUTSIDE RECORDS SUMMARY | 2025-08-10 08:27 | XMS_ITS | Continuity of Care Document ---
Author Organization [facility] Address [address] [place] [address] Care Team Providers Care Costume Seamstress Name Role Phone DILLAN ALBRECHT Primary Care Provider [phone] Assessment No assessment recorded. Plan of Treatment [...] Cain Kitchen PA-C [address] [facility], [place], [address], [facility] 07/21/2025 07:24:00 5 Sports Shoulder 4&1 completed Cain Kitchen PA-C [address] [facility], [place], [address], [facility] 05/05/2025 07:41:29 5 Sports Shoulder 4&1 completed Cain Kitchen PA-C [address], [place], [address], [facility] 01/11/2025 17:15:32 4 Sports Shoulder 4&1 completed Cain Kitchen PA-C [address], [place], [address], [facility] 07/20/2024 07:27:37 4 Sports Shoulder 4&1 completed Cain Kitchen PA-C [address], [place], [address], [facility] 04/17/2024 08:48:53 Other completed BRYN HAGAN [facility] 01/11/2025 14:28:22 Imaging Results None recorded. Procedure Notes None recorded. Medical Equipment None Reported. Allergies Allergen ID Allergen Name Allergen Category Reaction Reaction Severity Criticality Documentation Date Start Date Code Code System Note Provider Name and Address Organization Details Recorded Time 77177 penicilli n G benzathin e medicatio n Not available Not available Not available 11/11/20232017 7982 RxNorm Not Available [facility] 11:39:18 Medications Name Sig Start Date Stop [...] Available Not Available No t Available [facility] Levothyroxi ne Sodium 01/05 completed Not Available Not Available Not Available Vitals Date Recorded Body height Provider Name an d Address Organization Details Last Updated DateTime 07/21/2025 152.4 cm BRYN HAGAN [facility] 07/21/2025 08:35:51 Social History None recorded. Functional Status None recorded. Mental Status None recorded. Family History Nothing Reported. Medical History Condition Response Thyroid Problems Y Gynecological HistoryNo gynecological history recorded. Obstetrics History GPAL:G 0 P 0 0 0 0 Past Encounters Encounter ID Performer Location Encounter Start Date Encounter Closed Date Diagnosis/Indication Diagnosis SNOMED-CT Code Diagnosis ICD10 Code Diagnosis IMO Codes Diagnosis Note [id number] [facility] [address] [place] [address] 07/21/2025 08:30:50 08/02/2025 10:42:06 Inflammation of joint of left shoulder region [id number] 84423 M19.012 [id number] Health Concerns Section Related Observation LastModified by Organization Detai ls LastModified Time None Recorded Concern Status LastModified by Organization Details LastModified Time None Recorded Payers Encounter Date Sequence Insurance Name Policy Number Policy Hinds Covered Member ID Hinds Member ID Guarantor Name 07/21/2025 1 [place] [employer] Alicia Ngo [id number] Alicia Jaimes 07/21/2025 2 [place] [id number] Alicia Jaimes [id number] Alicia Jaimes Notes Date Note Type Note Provider Name and Address Organization Details Recorded Time 07/21/2025 text/html I am seeing the patient [...] follow up prn. Cain Kitchen PA-C [address] [facility] [address], [place], [address], [facility] 07/21/2025 12:00:53 OBGyn Episode No OBEpisode recorded.
--- OUTSIDE RECORDS SUMMARY | 2025-08-10 08:27 | XMS_ITS | Clinical Summary ---
Author Organization [facility] Address [address] [place] [address] Care Team Providers Care Refractory Repairer Name Role Phone Community, Pcp Primary Care [...] (1 of 2) 01/25/2010 BMI CHECK/ADVISE 09/09/2024 BONE DENSITY SCREENING 01/25/2025 PNEUMOCOCCAL VACCINE (1 - PCV) 01/25/2025 INFLUENZA (#1) 2025 Care Teams Refractory Repairer Relationship Specialty Start Date End Date Community, Pcp PCP - General Internal Medicine 10/19/16
--- OUTSIDE RECORDS SUMMARY | 2025-08-10 08:27 | XMS_ITS | Clinical Summary ---
Author Organization [facility] Address [address] [place] [address] Care Team Providers Care Gold Leaf Gilder Name Role Phone Chino Villatoro MD Primary Care Provider [phone] Allergies Active Allergy Reactions Criticality Noted Date [...] age to complete this topic Care Teams Gold Leaf Gilder Relationship Specialty Start Date End Date Chino Villatoro MD [address] [place] [address] PCP - General Family Medicine 07/28/21
--- OUTSIDE RECORDS SUMMARY | 2025-08-10 08:27 | XMS_ITS | Encounter Summary ---
Author Organization [facility] Address [facility] [place] [address] Care Team Providers Care Supervising Law Enforcement Analyst Name Role Phone Community, Pcp Primary Care Provider Unavailabl e Encounter Details Date Type Department Care Team Description 11/27/2016 Release of Information Medical Records [address] [place] [id number] Abstract, Provider Social History Tobacco Use Types Packs/Day Years Used Date Smoking Tobacco: Never Assessed Sex Assigned at Date Recorded Not on file documented as of this encounter Plan of Treatment Not on file documented as of this encounter Visit Diagnoses Not on filedocumented in this encounter Care Teams Supervising Law Enforcement Analyst Relationship Specialty Start Date End Date Community, Pcp PCP - General Internal Medicine 10/19/16 documented as of this encounter
[2025-08-10 10:39] LABS: Anion Gap 9 (12-20); Blood Urea Nitrogen 22 mg/dL (9-16); Calcium 9.8 mg/dL (8.4-10.2); Carbon Dioxide 29 mmol/L (22-29); Chloride 107 mmol/L (96-108); Cholesterol 243 mg/dL (<200); Estimated Glomerular Filt Rate > 60; HDL Cholesterol 72 mg/dL (>40); Potassium 4.4 mmol/L (3.3-5.1); Sodium 141 mmol/L (135-145); Triglycerides 68 mg/dL (<150)
== END 2025-08-10 08:23 | disposition home or self-care (01) ==
LOC: HO.HMGCLDS 08:22
PROVIDERS: PCP Family Medicine; Visit Provider Family Medicine
DX: Z00.00 Encounter for general adult medical examination without abnormal findings (principal); E78.5 Hyperlipidemia, unspecified
CPT/HCPCS: 36415; 80048; 80061

== ENCOUNTER 2025-08-20 08:15 | Outpatient (AMB) | payer MEDICARE, SELFPAY ==
--- NOTE | 2025-08-20 08:19 | A.OFFPC_ITS ---
Vital Signs 08/20/25 08:25 Height 5 ft Weight 160 lb 8 oz BMI 31.3 BP 132/90 H Blood Pressure Location Rt brachial Position Sitting Respiration 15 Pulse 60 Pulse Source Pulse Oximeter Temp 98 F Temp Source Temporal Artery Scan Pulse Oximetry (%) 99 Oxygen Delivery Method Room Air Intake Visit Reasons: f/u HLD, HTN Intake Note: Alicia presents in the office today for a follow up to hypertension and cholesterol. Kinesiologist Required: No Is last menstrual period known: No Post menopausal: Yes Patient : No Allergies Penicillins (PENICILLINS) Allergy (Unknown, Verified 08/20/25 08:24) RASH Medication List - Last Reconciled 08/20/25 by Chino Villatoro MD escitalopram oxalate 20 mg PO DAILY 90 days levothyroxine 125 mcg PO DAILY 90 days metoprolol succinate ER 50 mg PO DAILY 90 days Tobacco use date assessed: 08/20/25 Dental Screening Dental Screen Date: 08/20/25 Did you have a dental visit in the last 12 months?: Yes Did you have a dental problem in the last 6 months where you did not have access to dental care?: No Was dental information given to patient?: Patient has dentist HPI f/u HLD, HTN HPI Details 65 y/o female presents to f/u HLD, HTN. Blood pressure today 132/90, 60p. She is on metoprolol 25mg daily. Lipid panel drawn 08/10/25. Reviewed labs with pt. Triglycerides 68. TC 243. LDL 158. HDL 72. HPI Comments History of Present Illness Details Documentation assistance for Chino Villatoro MD, was provided by Antonio Mathews, Deputy County Counsel on 08/20/2025 at 8:57 AM YUKI. Randy, Dr. Villatoro, have read, observed, and verified documentation. 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 Cognitive needs: No Hearing needs: No Vision needs: No Questionnaire Thrive Questionnaire Date Thrive assessed: 11/13/24 I am a: Patient What is your living situation today?: I have a steady place to live Within the past 12 months, did the food you bought not last and you didn't have the money to get more?: Never true Within the past 12 months, did you worry whether your food would run out before you got money to buy more?: Never true Do you have trouble paying for medicines?: No Do you have trouble getting transportation to medical appointments?: No Do you have trouble paying your heating and electricity bill?: No Do you have trouble taking care of your child, family member or friend?: No Do you have trouble with day-to-day activities such as bathing, preparing meals, shopping, managing finances, etc.?: No Are you currently unemployed and looking for a job?: No Are you interested in more education?: No Please select the resources that you would like help with: None Currently or been in a relationship where the following occur: No concerns reported THRIVE Score: 0 Review of Systems Const Denies chills, Denies fatigue, Denies fever(s), Denies headache(s) and Denies weakness ENT Denies dizziness and Denies headache(s) Card Denies chest pain, Denies lightheadedness, Denies dyspnea and Denies other (Palpitations) Resp Denies cough, Denies dyspnea, Denies wheezing and Denies other ( shortness of breath) Musc Denies numbness and Denies tingling Neuro Denies dizziness, Denies headache(s), Denies numbness, Denies tingling, Denies paresthesias and Denies weakness Psych Denies anxiety and Denies depression Endo Denies fatigue Aller/Immun Denies wheezing Physical exam (Primary Care) Vital Signs: Last Vital Signs Temp 98 F 08/20/25 08:25 Pulse 60 08/20/25 08:25 Resp 15 08/20/25 08:25 BP 132/90 H 08/20/25 08:25 Pulse Ox 99 08/20/25 08:25 Oxygen Delivery Method Room Air 08/20/25 08:25 BMI result Body Mass Index 31.3 Tobacco/Smoking Status: Tobacco use Status Tobacco use date assessed 08/20/25 08/20/25 08:30 Patient Tobacco Use Status Former Tobacco user 08/20/25 08:25 e-Cigarette/Vaping Use Never Used 08/20/25 08:25 Thrive Assessment: Date of Thrive Assessment Date Thrive assessed 11/13/24 08/20/25 08:22 Currently or been in a relationship where the following occur: No concerns reported Const General: no acute distress and well developed Nutritional Appearance: well nourished Orientation/consciousness: patient oriented x3 HENMT Head: Yes normocephalic and Yes atraumatic Eyes General: appearance normal, both eyes and all related structures Pupils: Equal, round and reactive pupils present EOM: EOMs intact bilaterally Resp Effort & Inspection: normal respiratory effort Auscultation: clear to auscultation bilaterally Cardio Rate: regular rate Rhythm: regular rhythm Heart sounds: S1 normal heart sound present, S2 normal heart sound present, no gallops, no murmurs and no rubs Neuro General: patient oriented x3 and gait normal Cranial nerves: Yes Equal, round and reactive pupils present Psych Affect: normal affect Coding Level of Care Code Est Pt Level 4 (75444) Diagnoses Hypertension I10 Hyperlipidemia E78.5 Anxiety with depression F41.8 Irritability R45.4 Breast cancer screening by mammogram Z12.31 Assessment & Plan Assessment & Plan (1) Hypertension: Code(s): I10 - Essential (primary) hypertension Category: Medical Plan: Blood pressure is still little high. Goal is less than 140/90 Will increase metoprolol ER from 25 mg daily to 50 mg daily (2) Hyperlipidemia: Code(s): E78.5 - Hyperlipidemia, unspecified Category: Medical Plan: LDL cholesterol is too high. Start atorvastatin Will recheck lipids in about 3 months (3) Anxiety with depression: Code(s): F41.8 - Other specified anxiety disorders Category: Medical Plan: Patient notes anxiety and irritability have improved since resuming escitalopram She had only just started a prior to our last visit. We discussed that metoprolol and ensuing increase in that medication may also help with irritability/anxiety We also discussed that her thyroid hormone levels have been off and this can contribute to anxiety/irritability as well. Her hypothyroidism is managed by Dr. Qureshi as she can discuss this with him. (4) Irritability: Code(s): R45.4 - Irritability and anger Category: Medical Plan: As above (5) Breast cancer screening by mammogram: Code(s): Z12.31 - Encounter for screening mammogram for malignant neoplasm of breast Category: Medical Plan: Patient is due for mammogram Mammogram is ordered. This will be faxed to [facility] as per patient request Orders: Orders MM screening mammo BI Today Z12.31 - Encounter for screening mammogram for malignant neoplasm of breast [facility] [place]. Panel Fast Today E78.5 - Hyperlipidemia, unspecified, Z00.00 - Encounter for general adult medical examination without abnormal findings Lipid Panel Today E78.5 - Hyperlipidemia, unspecified, Z00.00 - Encounter for general adult medical examination without abnormal findings Medications: New atorvastatin (Lipitor) 20 mg PO BEDTIME 90 tabs 2RF 90 days Changed From metoprolol succinate ER 25 mg PO DAILY 90 days 90 tabs 3RF To metoprolol succinate ER 50 mg PO DAILY 90 tabs 3RF 90 days
[2025-08-20 08:25] VITALS: BP 132/90; PULSE 60; RESP 15; TEMP 36.6; O2SAT 99; BMI 31.3
== END 2025-08-20 09:02 | disposition home or self-care (01) ==
LOC: HO.HMCFM 08:16
PROVIDERS: PCP Family Medicine; Visit Provider Family Medicine
DX: I10 Essential (primary) hypertension (principal); E78.5 Hyperlipidemia, unspecified; F41.8 Other specified anxiety disorders; R45.4 Irritability and anger; Z12.31 Encounter for screening mammogram for malignant neoplasm of breast

== ENCOUNTER → 2025-08-20 08:15 | Outpatient (BNVA) | payer MEDICARE, SELFPAY | PROVIDERS: PCP Family Medicine; Visit Provider Family Medicine | DX: I10 Essential (primary) hypertension (principal); E78.5 Hyperlipidemia, unspecified; F41.8 Other specified anxiety disorders; R45.4 Irritability and anger | CPT/HCPCS: 99212 ==